=== PATIENT | male | born 1970 | race Caucasian/White ===

== ENCOUNTER 2021-08-21 17:18 | Emergency (ER) | payer OTHER, SELFPAY ==
--- NOTE | ~2021-08-21 | XR_ITS ---
EXAMINATION: XR chest 2V DATE: 08/21/2021 19:05 INDICATION: Cough and shortness of breath TECHNIQUE: PA and lateral views of the chest were obtained. COMPARISON: Chest radiograph dated 11/11/2012 FINDINGS: Mildly decreased lung volumes. Opacities at the bilateral lower lung zones which could represent atel ectasis or pneumonia. No pleural effusion or pneumothorax. Heart size is normal with small bilateral paracardial fat pads. Old healed right clavicle fracture and likely scapula. IMPRESSION: 1. Opacities in the bilateral lower lung zones which could represent atelectasis or pneumonia. Reviewed, dictated and finalized at location A. IMPRESSION: 1. Opacities in the bilateral lower lung zones which could represent atelectasi s or pneumonia.
--- NOTE | 2021-08-21 17:21 | ECG_ITS ---
Measurements Intervals [place] Rate: 89 P: 58 SC: 161 QRS: 28 QRSD: 118 T: 35 QT: 338 QTc: 412 Interpretive Statements SINUS RHYTHM INTRAVENTRICULAR CONDUCTION DELAY DELAYED PRECORDIAL R/S TRANSITION BASELINE ARTIFACT- I, II, III, AVR, AVL, AVF BORDERLINE ECG Electronically Signed On 08-22-2021 14:28:10 CDT by Mulugeta Lynn D.O.
[2021-08-21 17:29] VITALS: BP 156/96; PULSE 90; RESP 21; O2SAT 98
--- NOTE | 2021-08-21 18:14 | ED.SOB ---
HPI - SOB/Dyspnea General Chief Complaint: Shortness of Breath/Dyspnea <Nahid Corral MD - Last Filed: 08/21/21 18:31> Stated Complaint: SOB <Nahid Corral MD - Last Filed: 08/21/21 18:31> Time Seen by Provider: 08/21/21 17:23 <Nahid Corral MD - Last Filed: 08/21/21 18:31> Source: patient and family <Nahid Corral MD - Last Filed: 08/21/21 18:31> Mode of arrival: ambulatory <Nahid Corral MD - Last Filed: 08/21/21 18:31> Limitations: no limitations <Nahid Corral MD - Last Filed: 08/21/21 18:31> History of Present Illness HPI Narrative: 51-year-old male Here because shortness of breath and leg swelling He has had extensive previous work-up for these things, a weeklong hospitalization, and a recent ED visit all at [facility] in [place] and he has seen a japanese professor there According to his it is felt that essentially all of this stems from COPD and cor pulmonale and sleep apnea Sounds like sleep apnea has been known to be severe for quite some time and he has nocturnal CPAP however he usually does not tolerate it and removes the mask because he feels like it is suffocating him, and someone told him that he needed some kind of a surgical procedure in order to better tolerate the CPAP and he is supposed to be seeing an ENT about that Currently he sleeps badly at night and is always drowsy and sometimes falls asleep unexpectedly during the day He has a nebulizer at home as well as a number of pulmonary meds He has used compression stockings but does not use them every day He was taking diuretics however at the time of his fairly recent ED visit to [facility] they did not renew them Unclear exactly why although it would make sense that either his creatinine was rising or they're just generally not super effective for edema due to cor pulmonale He was prescribed a Z-Hans which has not helped too much He is also on Xarelto Effectively he is here today because he has little more leg edema than usual and a little worse exertional dyspnea than usual, they wonder if he needs a different/stronger antibiotic, they wonder about diuretics, and his is wondering if an issue with his heart may have been unappreciated He also had some left-sided abdominal pain a couple days ago but that is now resolved and there are no other GI or symptoms <Nahid Corral MD - Last Filed: 08/21/21 18:31> Related Data Home Medications: Home Medications Medication Instructions Recorded Confirmed albuterol sulfate 08/21/21 albuterol sulfate INHALATION 08/21/21 atorvastatin 40 mg PO DAILY 08/21/21 budesonide mg 08/21/21 esomeprazole magnesium [Nexium] 40 mg PO DAILY 08/21/21 08/21/21 [id number] INHALATION 08/21/21 [Trelegy Ellipta] hydroxyzine HCl 25 mg PO DAILY 08/21/21 levetiracetam 500 mg PO DAILY 08/21/21 metoprolol tartrate 50 mg PO DAILY 08/21/21 montelukast 10 mg PO DAILY 08/21/21 nicotine DAILY 08/21/21 prednisone 10 mg PO DAILY 08/21/21 rivaroxaban [Xarelto] 10 mg PO DAILY 08/21/21 <Nahid Corral MD - Last Filed: 08/21/21 18:31> Allergies/Adverse Reactions: Allergies Allergy/AdvReac Type Severity Reaction Status Date / Time No Known Allergies Allergy Mild Verified 11/11/12 18:17 <Nahid Corral MD - Last Filed: 08/21/21 18:31> Review of Systems Review of Systems: All systems reviewed & are unremarkable except as noted in HPI and below <Nahid Corral MD - Last Filed: 08/21/21 18:31> Constitutional: Constitutional: Reports no additional constitutional complaints, Denies chills, Reports fatigue, Denies fever(s), Denies headache(s) and Reports weakness <Nahid Corral MD - Last Filed: 08/21/21 18:31> Eyes: Eyes: Reports no additional eye complaints and Denies change in vision <Nahid Corral MD - Last Filed: 08/21/21 18:31> ENT: Denies headache(s) and Denies sore throat <Nahid Corral MD - Last Filed: 08/21/21 18:31> Cardio
[2021-08-21 18:20] VITALS: PULSE 86; RESP 18
[2021-08-21] MEDS: ALBUTEROL SULFATE NEB 2.5 MG/0.5 ML INH 5 MG INHALATION (18:20)
[2021-08-21] MEDS: IPRATROPIUM BR 0.02% INH SOLN 0.5 MG/2.5 ML VIAL INHALATION (18:20)
[2021-08-21 18:29] VITALS: PULSE 88; RESP 18
[2021-08-21 18:47] LABS: Alveolar/Arterial O2 Gradient 25.4 mmHg; Fractional Inspired Oxygen 21 %; HCO3 ABG 23.5 mEq/l (22.0-26.0); Oxygen Content ABG 16.9 %vol (16.0-22.0); Oxygen Saturation ABG 95.6 % (95.0-100.0); Oxyhemoglobin 94.2 % THb (90.0-100.0); PCO2 ABG 38.7 mmHg (35.0-45.0); PO2 FiO2 Ratio Arterial Blood 3.71 %; Total Hemoglobin 12.7 g/dL (12.0-18.0); pH ABG 7.402 (7.350-7.450)
[2021-08-21 18:48] LABS: Device ROOM AIR; Modified Allen's Test Pass; Site Drawn LEFT RADIAL
[2021-08-21 18:50] LABS: Basophils Percent Auto 0.3 % (0.2-1.2); Eosinophils Percent Auto 0.3 % (0-4.4); Hematocrit 36.8 % (42.0-52.0); Hemoglobin 11.7 g/dL (14.0-18.0); Immature Granulocyte Absolute 0.18 K/mm3 (0.00-0.031); Immature Granulocyte Percent A 1.5 % (0-0.5); Lymphocytes Absolute Auto 0.86 K/mm3 (0.9-3.2); Lymphocytes Percent Auto 7.4 % (18.3-44.2); Mean Corpuscular HGB Conc 31.8 g/dl (32-36); Mean Corpuscular Volume 91.3 fl (80-100); Mean Platelet Volume 10.6 fl (7.4-10.4); Monocytes Absolute Auto 0.7 K/mm3 (0.1-0.6); Monocytes Percent Auto 6.1 % (2.6-8.5); Neutrophils Absolute Auto 9.9 K/mm3 (1.3-6.7); Neutrophils Percent Auto 84.4 % (45.5-73.1); Platelet Count Result 218 k/mm3 (150-375); Red Blood Count 4.03 M/mm3 (4.6-6.20); Red Cell Distribution Width 14.8 % (11.5-14.5); White Blood Count 11.7 K/mm3 (4.5-10.0)
[2021-08-21] MEDS: BUMETANIDE INJ 1 MG/4 ML VIAL 2 MG IV PUSH (19:00)
[2021-08-21 19:01] LABS: Alanine Aminotransferase 35 U/L (4-50); Albumin Level 4.2 g/dL (3.5-5.1); Alkaline Phosphatase 46 U/L (38-126); Anion Gap 7 mmol/L (8-16); Aspartate Amino Transferase 32 U/L (17-59); Bilirubin,Total 0.4 mg/dL (0.2-1.3); Blood Urea Nitrogen 25 mg/dL (9-20); Calcium 9.5 mg/dL (8.4-10.2); Carbon Dioxide 27 mmol/L (22-30); Chloride 108 mmol/L (98-107); Estimated CRCL calculation 103 ml/min; Estimated Glomerular Filt Rate > 60; Glucose 126 mg/dL (65-110); Potassium 4.2 mmol/L (3.4-5.0); Sodium 142 mmol/L (137-145)
[2021-08-21 19:13] LABS: NT Pro B Type Natriuretic Pept 63 pg/mL (5-100); Troponin I < 0.012 ng/mL (0.000-0.034)
[2021-08-21 19:16] LABS: Add Urine Microscopic? YES; Appearance Urine Clear (Clear); Bilirubin Urine Negative (Negative); Blood Urine Negative (Negative); Color Urine Yellow (Yellow); Glucose Urine UA Negative (Negative); Ketones Urine Negative (Negative); Leukocyte Esterase Ur Negative LEU/UL (Negative); Mucus Urine Rare /lpf; Nitrate Urine Negative (Negative); Protein Urine Negative (Negative); WBC Urine 0-3 /hpf
[2021-08-21 19:18] LABS: Specific Grav Ur 1.032 (1.001-1.035)
[2021-08-21 21:18] VITALS: BP 137/89; PULSE 82; RESP 17; O2SAT 97
== END 2021-08-21 21:19 | disposition home or self-care (01) ==
PROVIDERS: Emergency Provider Emergency Medicine
DX: J44.9 Chronic obstructive pulmonary disease, unspecified (principal); G47.33 Obstructive sleep apnea (adult) (pediatric); Z79.01 Long term (current) use of anticoagulants; I45.9 Conduction disorder, unspecified
CPT/HCPCS: 36415; 36600; 71046; 80053; 81001; 82805; 83880; 84484; 85025; 93005; 94640; 96374; 96375; 99284; J1100

== ENCOUNTER 2022-01-06 07:41 | Outpatient (CLI) | payer OTHER, SELFPAY ==
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
[2022-01-16 12:36] VITALS: BMI 41.8
== END 2022-01-07 06:53 | disposition home or self-care (01) ==
LOC: ANHCSM 07:41
PROVIDERS: PCP Family Medicine; Visit Provider Internal Medicine Critical Care Medicine
DX: G47.33 Obstructive sleep apnea (adult) (pediatric) (principal)
CPT/HCPCS: 95811

== ENCOUNTER 2022-02-06 14:32 | Outpatient (CLI) | payer OTHER, SELFPAY ==
--- NOTE | ~2022-02-06 | XR_ITS ---
XR chest 2V DATE: 02/06/2022 14:50 INDICATION: Shortness of breath. History of COPD, asthma. TECHNIQUE: PA and lateral views COMPARISON: 08/21/2021 2 view chest FINDINGS: Normal heart size. No hilar or mediastinal enlargement. Stable chronic mild discoid atelectasis or scarring at the right lung base. No pulmonary infiltrate or consolidation, pleural effusion or pulmonary vascular congestion or pneumo thorax is detected. There is chronic mild blunting of right costophrenic angle, stable since 08/21/20 21. Old healed fracture deformity of the right clavicle. Diffuse osteopenia. IMPRESSION: Chronic mild discoid atelectasis or scarring at the right lung base and chronic minimal b lunting of the right costophrenic angle. No active cardiopulmonary disease or significant change [facility] e 08/21/2021 Reviewed, dictated and finalized at location A. IMPRESSION: Chronic mild discoid atelectasis or scarring at the right lung base and chronic minimal blunting of the right costophrenic angle. No active cardio pulmonary disease or significant change since 08/21/2021
== END 2022-02-06 14:33 | disposition home or self-care (01) ==
PROVIDERS: PCP Family Medicine; Visit Provider Internal Medicine Critical Care Medicine
DX: R06.02 Shortness of breath (principal); J44.9 Chronic obstructive pulmonary disease, unspecified; J45.909 Unspecified asthma, uncomplicated
CPT/HCPCS: 71046

== ENCOUNTER 2022-02-28 08:48 | Outpatient (CLI) | payer OTHER, SELFPAY ==
--- NOTE | 2022-02-28 08:59 | ECHO_ITS ---
Patient Info Name: Zafar Wright Age: 51 years : 1970 Gender: Male Ht: 71 in Wt: 288 lbs BSA: 2.61 m2 HR: 67 bpm BP: 163 / 94 mmHg Technical Quality: Fair Exam Date: 02/28/2022 9:20 AM Exam Location: [facility] Pulmonary Patient Status: Outpatient Admit Date: 02/28/2022 Staff Ordering Physician: Mulugeta Lynn DO Pencil Maker: Lisa Reddy RDCS Attending Provider: Mulugeta Lynn DO Referring Physician: Shane CRANE; Exam Type: CA echo doppler color flow Study Info Indications R06.00 - Dyspnea, unspecified Complete two-dimensional, color flow and Doppler transthoracic echocardiogram is performed. Summary 1. Complete two-dimensional, color flow and Doppler transthoracic echocardiogram is performed. 2. Left ventricular chamber dimension is normal. 3. Left ventricular systolic function is normal, estimated at 60-65%. 4. The left ventricular diastolic function is grade II diastolic dysfunction. 5. E/e' 11 is mildly elevated. 6. Global longitudinal strain is normal at -18.1%. 7. No pulmonary hypertension, estimated pulmonary arterial systolic pressure is 20 mmHg. Left Ventricle E/e' 11 is mildly elevated. Global longitudinal strain is normal at -18.1%. Left ventricular chamber dimension is normal. Left ventricular systolic function is normal, estimated at 60-65%. The left ventricular diastolic function is grade II diastolic dysfunction. Right Ventricle Right ventricular systolic function is normal and with normal TAPSE 3.1 cm. Right ventricular chamber dimension is normal. Left Atria Left atrial chamber dimension is normal. Right Atria Right atrial chamber dimension is normal. Aortic Valve The aortic valve is trileaflet. There is no aortic valve stenosis. There is no aortic valve regurgitation. Pulmonic Valve There is no pulmonic regurgitation. Mitral Valve There is no mitral valve stenosis. There is no mitral valve regurgitation. Tricuspid Valve There is no tricuspid valve regurgitation. No pulmonary hypertension, estimated pulmonary arterial systolic pressure is 20 mmHg. Pericardium/Pleural There is no pericardial effusion. Inferior Vena Cava Normal inferior vena cava with >50% collapse upon inspiration consistent with normal right atrial pressure, 5 mmHg. Aorta The aortic root size at the sinus of Valsalva is normal. Left Ventricular Outflow Tract Name Value Normal LVOT 2D LVOT Diameter 2.1 cm LVOT Doppler LVOT Peak Gradient 8 mmHg LVOT Mean Gradient 4 mmHg LVOT VTI 26 cm LVOT VTI/AV VTI Ratio 0.9 LVOT Stroke Volume 90 ml LVOT CO 6.3 l/min LVOT CI 2.4 l/min/m2 Pulmonic Valve Name Value Normal RVOT Doppler
== END 2022-02-28 08:49 | disposition home or self-care (01) ==
LOC: ANHCARD 08:49
PROVIDERS: PCP Family Medicine; Visit Provider Internal Medicine Cardiovascular Disease
DX: R06.00 Dyspnea, unspecified (principal)
CPT/HCPCS: 93306

== ENCOUNTER 2022-07-15 19:10 | Observation (INO) | payer OTHER, SELFPAY ==
[2022-07-15] VITALS (8 sets, daily range): BP systolic 108–128; BP diastolic 78–85; PULSE 63–82; RESP 14–27; TEMP 36.6; O2SAT 93–98
--- NOTE | ~2022-07-15 | XR_ITS ---
EXAMINATION: XR chest 2V Exam Date/Time: 07/15/2022 19:20 CDT HISTORY: CP, SOB Comparison: 01/29/2022. RESULT: Lines, tubes, and devices: None. Lungs and pleura: Subsegmental opacities in bilateral lower lungs. Chronic right lateral pleural sca rring. Cardiomediastinal silhouette: Stable. Other: No acute osseous or upper abdominal finding. IMPRESSION: Subsegmental atelectasis/consolidation in the lower lungs. Reviewed, dictated and finalized at location K.
--- NOTE | ~2022-07-15 | CT_ITS ---
EXAMINATION: CTA chest PE protocol DATE: 07/15/2022 21:03 INDICATION: midsternal chest pain only on inspiration x2 days, SOB TECHNIQUE: Computed tomography angiography (CTA) of the chest was performed with 100 mL Omnipaque-350 intravenous contrast timed to evaluate the pulmonary arteries. Coronal maximum intensity projection 3D-reconstructions were created by the technologist. The dose-length product (DLP) was 715.61 mGy-cm. Automated exposure control and iterative reconstruction technique were employed. COMPARISON: None. FINDINGS: Lung parenchyma and airways: Apical pleural blebs. Dependent atelectasis/consolidation in the right l bianca base, right middle lobe, and the anteromedial left lower lobe. Scattered areas of centrilobular n odular and tree-in-bud opacities in the lower lungs. Scattered airway debris, most prominent in the r ight lower lobe bronchi. Pleura: Unremarkable. Thoracic inlet, axillae and chest wall: Unremarkable. Thoracic aorta: Arch calcifications. Mediastinum: Numerous subcentimeter mediastinal lymph nodes. Bilateral hilar lymphadenopathy. Heart and pericardium: Normal. Coronary artery calcifications: Moderate. Upper abdomen: No significant finding. Bones: No acute osseous finding. Pulmonary arteries: Study quality: Adequate. No pulmonary emboli detected. IMPRESSION: No CT evidence of acute pulmonary embolus. Pulmonary findings likely represent infection, including a typical agents and/or aspiration pneumonia Reviewed, dictated and finalized at location K. IMPRESSION: No CT evidence of acute pulmonary embolus. Pulmonary findings likely represent infection, including atypical agents and/or aspiration pneumonia
--- NOTE | 2022-07-15 19:18 | ECG_ITS ---
Measurements Intervals [place] Rate: 70 P: 12 MS: 159 QRS: 45 QRSD: 100 T: 47 QT: 353 QTc: 382 Interpretive Statements SINUS RHYTHM BASELINE ARTIFACT- III NORMAL ECG COMPARED TO ECG 08/21/2021 17:37:47 NO SIGNIFICANT CHANGES Electronically Signed On 07-15-2022 21:14:19 CDT by Mulugeta Lynn D.O.
[2022-07-15 19:32] LABS: Hematocrit 41.7 % (42.0-52.0); Hemoglobin 13.7 g/dL (14.0-18.0); Mean Corpuscular HGB Conc 32.9 g/dl (32-36); Mean Corpuscular Hemoglobin 29.2 pg (26-34); Mean Corpuscular Volume 88.9 fl (80-100); Mean Platelet Volume 11.1 fl (7.4-10.4); Platelet Count Result 341 k/mm3 (150-375); Red Blood Count 4.69 M/mm3 (4.6-6.20); Red Cell Distribution Width 16.9 % (11.5-14.5)
[2022-07-15 19:44] LABS: INR 1.9; Prothrombin Time 21.4 Seconds (11.1-14.7)
[2022-07-15 19:45] LABS: Partial Thromboplastin Time 40.8 SECONDS (22.3-36.8)
[2022-07-15 19:46] LABS: Alanine Aminotransferase 18 U/L (6-50); Alkaline Phosphatase 85 U/L (38-126); Anion Gap 10 mmol/L (8-16); Aspartate Amino Transferase 29 U/L (17-59); Bilirubin,Total 0.5 mg/dL (0.2-1.3); Blood Urea Nitrogen 23 mg/dL (9-20); Calcium 9.5 mg/dL (8.4-10.2); Carbon Dioxide 22 mmol/L (22-30); Chloride 108 mmol/L (98-107); Estimated CRCL calculation 80 ml/min; Estimated Glomerular Filt Rate > 60; Glucose 112 mg/dL (65-110); Lipase 48 U/L (23-300); Sodium 140 mmol/L (137-145)
[2022-07-15 19:57] LABS: Troponin I < 0.012 ng/mL (0.000-0.034)
[2022-07-15 19:58] LABS: White Blood Count 50.8 K/mm3 (4.5-10.0)
[2022-07-15 20:07] LABS: Anisocytosis 1+ (NORMAL); Band Neutrophils Percent 6 % (0-6); Lymphocytes Absolute Manual 5.08 K/mm3 (1.1-4.5); Monocytes Absolute Manual 1.01 K/mm3 (0.1-0.90); Monocytes Percent Manual 2 % (3-9); Neutrophils Percent Manual 82 % (46-73); Platelet Estimate Adequate (Adequate); Total Cells Counted 100
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
[2022-07-15] MEDS: IPRATROPIUM BR 0.02% INH SOLN 0.5 MG/2.5 ML VIAL INHALATION (20:38)
[2022-07-15] MEDS: ALBUTEROL SULFATE NEB 2.5 MG/3 ML INH 5 MG INHALATION (20:38)
[2022-07-15 23:19] LABS: Troponin I < 0.012 ng/mL (0.000-0.034)
[2022-07-15 23:24] LABS: SARS-CoV-2 RNA PCR Negative
[2022-07-16] VITALS (18 sets, daily range): BP systolic 116–130; BP diastolic 70–89; PULSE 68–95; RESP 16–20; TEMP 36.3–36.6; O2SAT 94–99; BMI 33.8
--- NOTE | 2022-07-16 00:26 | ADMGEN ---
This patient, Zafar Wright, was admitted to [facility] Surg Room 323-01. Patient/family oriented to hospital policies and general routines including ID bracelet, bed and alarms, visiting hours, pain management, procedures, bathroom and other care routines, personal items, smoking policy, room service/diet, and visiting hours. Information on how to activate the Rapid Response Team has been discussed. Patient/Family are encouraged to report perceived risks to care and to ask questions if they do not understand what they are told or what they should do.
[2022-07-16 02:18] LABS: Troponin I < 0.012 ng/mL (0.000-0.034)
--- NOTE | 2022-07-16 02:45 | PM.IMHP ---
H&P: HPI History of Present Illness Date/Time: 07/16/22 02:45 Chief Complaint: Pain with breathing, cough Narrative: 52-year-old male with past medical history of interstitial lung disease, COPD, continued tobacco use, traumatic brain injury, obstructive sleep apnea and essential hypertension who presented to the ER with pleuritic chest pain and cough for 2 days. The patient reports that he was out of town working. 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 He reports that after finishing work on when they were driving back to the operational site the patient suddenly developed severe vomiting and diaphoresis. He reported that he generally felt unwell and was unable to sleep that night due to nausea and vomiting. The next day he began having increasing cough and shortness of breath. His checked his temperature at home he does not think that he had a fever. The patient does have some difficulty recalling facts due to short-term memory loss from history of traumatic brain injury. He reports that he has had increased cough since a few hours after in having the episode of vomiting. His cough is always productive of yellow sputum any thinks that he may be producing more sputum than usual. His sputum has not changed in color. He reports that he always has to take Mucinex 3 or 4 times a day [id number]. When questioned about his inhalers at home the patient states that he gets all of his inhalers filled whether not he is using them are not since he gets them filled for free. He does not know which inhaler she is actually supposed to be using. He states that he prefers to use nebulizer treatments. The patient does have a history of difficulty with compliance with medication regimen. He reports that his pleuritic chest pain started on Sunday and is worse with coughing and deep breathing. He reports that it is a burning sensation with breathing. The pain is moderate to severe in intensity. He is still having some nausea but has not had any further vomiting in the last couple of days. He has had decreased oral intake. He has noticed that his urine has been darker over the last couple days but denies difficulty starting or stopping his stream. He reports that he has chronic constipation and only has a bowel movement about twice a week. He states that he has tried ?just about everything? for his constipation without relief symptoms. He denies any active abdominal pain currently. He states that his weight was 315 lb last year but when he was weaned off of steroids his weight began to drop. He states he has not consciously trying to lose weight. His weight currently is around 220 lb. He has lost 16 kg since April and 29 kg since November. He denies any difficulty swallowing food or choking or coughing after eating food. He does have a distant history of DVTs following complication of traumatic brain injury, coma, tracheostomy and prolonged hospital stay. He has a IVC filter in place and takes Xarelto. He reported that when his symptoms 1st started on he did take an extra dose of Xarelto and aspirin because he was concerned that his symptoms could be due to a blood clot. He has not had any lower extremity swelling or edema. He is compliant with his home CPAP with settings of 9 cm water. He follows with Dr. Sparks from pulmonology. He reports that he quit smoking approximately 6 months ago. He has significantly decreased his alcohol use over the last 6 months to a year. He is only drinking 1 or 2 beverages a couple times a week. Review of Systems Review of Systems: 12 systems were reviewed with pertinent positives and negatives per HPI. Except as documented in the HPI, all other systems were reviewed and are negative. [facility] Past Medical History Medical History Alcohol abuse Benign essential HTN Chronic deep vein thrombosis of left popliteal vein Continuous tobacco abuse COPD (chronic o
[2022-07-16] MEDS: ALBUTEROL SULFATE NEB 2.5 MG/3 ML INH INHALATION (03:57)
[2022-07-16] MEDS: SODIUM CHLORIDE 0.9% IV 1,000 ML 999 ML IV CONT (04:22)
[2022-07-16] MEDS: AMPICILLIN SULB 3 GM/NS 100 ML 3 GM/100 ML VIAL IVPB ×4 (04:36→23:53)
[2022-07-16] MEDS: IPRATROPIUM BR 0.02% INH SOLN 0.5 MG/2.5 ML VIAL INHALATION ×4 (05:03→16:18)
[2022-07-16] MEDS: ALBUTEROL SULFATE NEB 2.5 MG/3 ML INH 5 MG INHALATION ×4 (05:03→16:18)
[2022-07-16 06:22] LABS: Hematocrit 37.6 % (42.0-52.0); Hemoglobin 12.5 g/dL (14.0-18.0); Mean Corpuscular HGB Conc 33.2 g/dl (32-36); Mean Corpuscular Hemoglobin 29.2 pg (26-34); Mean Corpuscular Volume 87.9 fl (80-100); Mean Platelet Volume 11.7 fl (7.4-10.4); Platelet Count Result 316 k/mm3 (150-375); Red Blood Count 4.28 M/mm3 (4.6-6.20); Red Cell Distribution Width 16.8 % (11.5-14.5); White Blood Count 34.9 K/mm3 (4.5-10.0)
[2022-07-16 06:35] LABS: Anion Gap 8 mmol/L (8-16); Blood Urea Nitrogen 18 mg/dL (9-20); Calcium 8.9 mg/dL (8.4-10.2); Carbon Dioxide 24 mmol/L (22-30); Chloride 107 mmol/L (98-107); Estimated CRCL calculation 88 ml/min; Estimated Glomerular Filt Rate > 60; Glucose 96 mg/dL (65-110); Potassium 3.3 mmol/L (3.4-5.0); Sodium 139 mmol/L (137-145)
[2022-07-16 07:30] LABS: Band Neutrophils Percent 4 % (0-6); Basophils Absolute Manual 1.04 K/mm3 (0.0-0.1); Basophils Percent Manual 3 % (0-1); Lymphocytes Absolute Manual 1.74 K/mm3 (1.1-4.5); Metamyelocytes Percent 4 %; Monocytes Absolute Manual 2.09 K/mm3 (0.1-0.90); Monocytes Percent Manual 6 % (3-9); Neutrophils Absolute Manual 28.61 K/mm3 (1.3-6.7); Neutrophils Percent Manual 78 % (46-73); Total Cells Counted 100
[2022-07-16 07:31] LABS: Platelet Estimate Adequate (Adequate); Smudge Cells PRESENT
[2022-07-16] MEDS: BUDESONIDE RESPULE NEB 0.5 MG/2 ML AMP INHALATION ×2 (08:11→23:35)
[2022-07-16] MEDS: METOPROLOL TARTRATE 50 MG TAB PO ×2 (08:36→20:30)
[2022-07-16] MEDS: levETIRAcetam 250 MG TABLET PO ×2 (08:36→20:30)
[2022-07-16] MEDS: RIVAROXABAN 10 MG TABLET PO (08:36)
[2022-07-16] MEDS: MONTELUKAST SODIUM 10 MG TABLET PO (08:36)
[2022-07-16] MEDS: guaiFENesin 600 MG/DEXTROMETHORPHAN 30 MG SR TAB 12 HR 1 TAB PO ×2 (08:36→20:29)
[2022-07-16] MEDS: ATORVASTATIN 40 MG TABLET BY MOUTH (08:36)
[2022-07-16] MEDS: PANTOPRAZOLE 40 MG TABLET PO (08:36)
[2022-07-16] MEDS: ACETAMINOPHEN 325 MG TABLET 650 MG PO (21:27)
[2022-07-17] VITALS (12 sets, daily range): BP systolic 130; BP diastolic 69–79; PULSE 71–88; RESP 16–20; TEMP 36.3–36.5; O2SAT 94–96
[2022-07-17] MEDS: IPRATROPIUM BR 0.02% INH SOLN 0.5 MG/2.5 ML VIAL INHALATION ×5 (04:43→15:17)
[2022-07-17] MEDS: ALBUTEROL SULFATE NEB 2.5 MG/3 ML INH 5 MG INHALATION ×5 (04:43→15:17)
[2022-07-17] MEDS: AMPICILLIN SULB 3 GM/NS 100 ML 3 GM/100 ML VIAL IVPB (05:50)
[2022-07-17 06:03] LABS: Basophils Absolute Auto 1.1 K/mm3 (0.0-0.1); Basophils Percent Auto 4.7 % (0.2-1.2); Eosinophils Absolute Auto 0.3 K/mm3 (0-0.3); Eosinophils Percent Auto 1.3 % (0-4.4); Hematocrit 37.7 % (42.0-52.0); Hemoglobin 12.3 g/dL (14.0-18.0); Immature Granulocyte Absolute 4.32 K/mm3 (0.00-0.031); Immature Granulocyte Percent A 18.2 % (0-0.5); Lymphocytes Absolute Auto 2.07 K/mm3 (0.9-3.2); Lymphocytes Percent Auto 8.7 % (18.3-44.2); Mean Corpuscular HGB Conc 32.6 g/dl (32-36); Mean Corpuscular Hemoglobin 28.9 pg (26-34); Mean Corpuscular Volume 88.7 fl (80-100); Mean Platelet Volume 10.9 fl (7.4-10.4); Monocytes Absolute Auto 1.2 K/mm3 (0.1-0.6); Monocytes Percent Auto 4.9 % (2.6-8.5); Neutrophils Absolute Auto 14.8 K/mm3 (1.3-6.7); Neutrophils Percent Auto 62.2 % (45.5-73.1); Platelet Count Result 298 k/mm3 (150-375); Red Blood Count 4.25 M/mm3 (4.6-6.20); Red Cell Distribution Width 16.9 % (11.5-14.5); White Blood Count 23.8 K/mm3 (4.5-10.0)
[2022-07-17 06:26] LABS: Anion Gap 12 mmol/L (8-16); Blood Urea Nitrogen 11 mg/dL (9-20); Carbon Dioxide 28 mmol/L (22-30); Chloride 105 mmol/L (98-107); Estimated CRCL calculation 96 ml/min; Estimated Glomerular Filt Rate > 60; Glucose 102 mg/dL (65-110); Potassium 3.7 mmol/L (3.4-5.0); Sodium 145 mmol/L (137-145)
[2022-07-17] MEDS: guaiFENesin 600 MG/DEXTROMETHORPHAN 30 MG SR TAB 12 HR 1 TAB PO (08:37)
[2022-07-17] MEDS: MONTELUKAST SODIUM 10 MG TABLET PO (08:37)
[2022-07-17] MEDS: levETIRAcetam 250 MG TABLET PO (08:37)
[2022-07-17] MEDS: ATORVASTATIN 40 MG TABLET BY MOUTH (08:37)
[2022-07-17] MEDS: PANTOPRAZOLE 40 MG TABLET PO (08:37)
[2022-07-17] MEDS: METOPROLOL TARTRATE 50 MG TAB PO (08:37)
[2022-07-17] MEDS: RIVAROXABAN 10 MG TABLET PO (08:37)
[2022-07-17] MEDS: BUDESONIDE RESPULE NEB 0.5 MG/2 ML AMP INHALATION (08:43)
--- NOTE | 2022-07-17 10:29 | PM.DS ---
DS: Admitting Diagnosis Discharge Date July 17, 2022 Admitting Diagnosis Chest pain DS: Discharge Diagnosis Discharge Diagnosis (1) Pneumonia: Qualifiers: Laterality: bilateral Lung location: unspecified part of lung Pneumonia type: due to unspecified organism Qualified Code(s): J18.9 - Pneumonia, unspecified organism Code(s): J18.9 - Pneumonia, unspecified organism Status: Acute Assessment and Plan: Pneumonia concerning for aspiration given patient's history of vomiting and subsequent acute onset of pleuritic chest pain the following day. Will change antibiotic therapy from Rocephin and azithromycin to Unasyn but will keep azithromycin on board for atypical coverage. Blood cultures are pending. Will send urine Legionella and pneumococcal antigens. Will check mycoplasma titers and mycoplasma PCR. The patient is not hypoxic and is in no respiratory distress. (2) Neutrophilic leukocytosis: Code(s): D72.9 - Disorder of white blood cells, unspecified Status: Acute Assessment and Plan: Patient has severe leukocytosis with neutrophil predominance likely due to his pneumonia. Patient has had significant weight loss recently which could be attributed to his stopping steroid therapy last year but I am also concerned that there may be some underlying malignant process. Will request pathologist to review peripheral smear. No evidence of malignancy on CT of the chest. (3) COPD (chronic obstructive pulmonary disease): Code(s): J44.9 - Chronic obstructive pulmonary disease, unspecified Status: Acute Assessment and Plan: Patient may have a component of COPD the patient also complicating his pneumonia but given his severe leukocytosis I do not feel comfortable adding steroid therapy. The patient is perseverating on me adding steroid therapy. At this time will consult pulmonology for their opinion and further recommendations. Patient has been started on scheduled nebulizers with albuterol and Atrovent every 4 hours. Will also add Mucinex DM q.12 hours. (4) Obstructive sleep apnea: Code(s): G47.33 - Obstructive sleep apnea (adult) (pediatric) Status: Acute Assessment and Plan: Home CPAP settings of 9 have been ordered. (5) Tobacco use: Code(s): Z72.0 - Tobacco use Status: Acute Assessment and Plan: I congratulated the patient on quitting smoking. DS: Summary Hospital Course Hospital Course: 52-year-old male with past medical history of interstitial lung disease, COPD, continued tobacco use, traumatic brain injury, obstructive sleep apnea and essential hypertension who presented to the ER with pleuritic chest pain and cough for 2 days.? The patient reports that he was out of town working.? 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 He reports that after finishing work on when they were driving back to the operational site the patient suddenly developed severe vomiting and diaphoresis.? He reported that he generally felt unwell and was unable to sleep that night due to nausea and vomiting.? The next day he began having increasing cough and shortness of breath.? His checked his temperature at home he does not think that he had a fever.? The patient does have some difficulty recalling facts due to short-term memory loss from history of traumatic brain injury.? He reports that he has had increased cough since a few hours after in having the episode of vomiting.? His cough is always productive of yellow sputum any thinks that he may be producing more sputum than usual.? His sputum has not changed in color.? He reports that he always has to take Mucinex 3 or 4 times a day [id number].? When questioned about his inhalers at home the patient states that he gets all of his inhalers filled whether not he is using them are not since he gets them filled for free.? He does not know
[2022-07-17] MEDS: levoFLOXacin 750 MG TABLET PO (11:07)
[2022-07-17] MEDS: ACETYLCYSTEINE 20% INHAL SOLN 800 MG/4 ML VIAL 200 MG INHALATION (15:17)
[2022-07-17] MEDS: guaiFENesin 600 MG/DEXTROMETHORPHAN 30 MG SR TAB 12 HR 2 TAB PO (16:44)
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
[2022-07-20 03:39] LABS: Pneumococcal Antigen Urine Detected (Not Detected)
[2022-07-20 13:59] LABS: Mycoplasma IgM Antibody Titer 217 U/mL (<770)
[2022-07-21 07:25] LABS: Legionella pneumophila Ag Ur Not Detected (Not Detected)
== END 2022-07-17 18:42 | disposition home or self-care (01) ==
LOC: ANHED 22:56 → ANH3MEDSUR 23:53
PROVIDERS: Emergency Medicine; Admitting Provider Internal Medicine; Emergency Provider Emergency Medicine; PCP Family Medicine; Visit Provider Student in an Organized Health Care Education/Training Program
DX: J18.9 Pneumonia, unspecified organism (principal); D72.829 Elevated white blood cell count, unspecified; J44.0 Chronic obstructive pulmonary disease with (acute) lower respiratory infection; G47.33 Obstructive sleep apnea (adult) (pediatric); Z99.89 Dependence on other enabling machines and devices; R07.1 Chest pain on breathing; Z87.891 Personal history of nicotine dependence; F41.1 Generalized anxiety disorder; K21.9 Gastro-esophageal reflux disease without esophagitis; E29.1 Testicular hypofunction; F32.9 Major depressive disorder, single episode, unspecified; Z57.2 Occupational exposure to dust; I11.0 Hypertensive heart disease with heart failure; I50.30 Unspecified diastolic (congestive) heart failure; D72.821 Monocytosis (symptomatic); D64.9 Anemia, unspecified; E66.9 Obesity, unspecified; Z20.822 Contact with and (suspected) exposure to COVID-19; Z68.33 Body mass index [BMI] 33.0-33.9, adult; Z95.828 Presence of other vascular implants and grafts; Z87.820 Personal history of traumatic brain injury; Z86.718 Personal history of other venous thrombosis and embolism; Z79.51 Long term (current) use of inhaled steroids; Z79.01 Long term (current) use of anticoagulants; Z79.899 Other long term (current) drug therapy; Z82.49 Family history of ischemic heart disease and other diseases of the circulatory system
CPT/HCPCS: 36415; 71046; 71275; 80048; 80053; 83605; 83690; 84484; 85025; 85610; 85730; 86738; 87040; 87070; 87205; 87449; 87581; 87899; 93005; 94640; 96361; 96365; 96366; 96367; 96375; 99285; A9270; C9803; G0378; J0295; J0456; J0696; J7030; Q9967; U0003; U0005

== ENCOUNTER 2022-08-22 08:56 | Outpatient (CLI) | payer OTHER, SELFPAY ==
--- NOTE | ~2022-08-22 | CT_ITS ---
EXAMINATION: CT chest high resolution wo oh DATE: 08/22/2022 09:20 INDICATION: Hemoptysis TECHNIQUE: Computed tomography (CT) of the chest was performed without intravenous contrast. The dose -length product (DLP) was 557.65 mGy-cm. Automated exposure control and iterative reconstruction tech nique were employed. COMPARISON: 07/15/2022 FINDINGS: There is mild emphysema. There is worsening atelectasis of the right middle lobe. No pathol ogically enlarged thoracic lymph nodes are identified. The heart size is normal. No pleural effusion or pneumothorax. Calcified coronary artery atherosclerosis is noted. There are healed fractures of th e right clavicle and right scapula. There is mild thoracic spondylosis. There is a fat-containing ep igastric ventral hernia to the right of midline. IMPRESSION: 1. Worsening atelectasis of the right middle lobe unclear etiology. Reviewed, dictated and finalized at location A.
== END 2022-08-22 08:57 | disposition home or self-care (01) ==
PROVIDERS: PCP Family Medicine; Visit Provider Family Medicine
DX: R04.2 Hemoptysis (principal); R91.8 Other nonspecific abnormal finding of lung field
CPT/HCPCS: 71250

== ENCOUNTER 2022-08-28 14:43 | Inpatient (IN) | payer OTHER, SELFPAY ==
[2022-08-28] VITALS (9 sets, daily range): BP systolic 109–134; BP diastolic 67–79; PULSE 64–96; RESP 17–18; TEMP 36.4–36.6; O2SAT 92–96; BMI 34.4
--- NOTE | ~2022-08-28 | XR_ITS ---
EXAMINATION: XR chest 1V portable INDICATION: Coughing, weakness TECHNIQUE: Portable AP chest at 1626 hours COMPARISON: 07/15/2022 FINDINGS: There are minimal airspace opacities of the lung bases. No pleural effusion or pneumothorax . The cardiomediastinal silhouette is normal. An old healed fracture of the right clavicle is noted. IMPRESSION: 1. Minimal bibasilar airspace opacity, consistent with atelectasis versus pneumonia. Reviewed, dictated and finalized at location A. IMPRESSION: 1. Minimal bibasilar airspace opacity, consistent with atelectasis versus pneum onia.
--- NOTE | ~2022-08-28 | CT_ITS ---
EXAMINATION: CT brain wo con DATE: 08/28/2022 18:50 INDICATION: Leukemia . TECHNIQUE: Computed tomography (CT) of the head was performed without intravenous contrast. The mA wa s adjusted according to patient size. Iterative reconstruction technique was employed. The dose-lengt h product was 681.00 mGy-cm. COMPARISON: None FINDINGS: No acute intracranial hemorrhage or extra-axial fluid collection. 1.2 x 1.8 cm ovoid soft tissue density projecting off the right cerebellum distorting the fourth vent ricle or possibly within the fourth ventricle. No hydrocephalus or herniation. No acute ischemic infarct. Unremarkable dural venous sinus attenuation. No acute osseous abnormality. Left frontal temporoparietal craniotomy. Moderate right mastoid effusion. Bilateral maxillary sinus mucosal thickening and aerated secretions, with an air-fluid level in the right. Atherosclerotic intracranial calcification. Mild atrophy and chronic white matter change. Left fronta l and temporal encephalomalacia. IMPRESSION: Possible 1.8 cm right cerebellar or fourth ventricle mass. Recommend comparison to outside studies if available. Otherwise consider MR of the brain with and without contrast for further evaluation. Reviewed, dictated and finalized at location K. IMPRESSION: Possible 1.8 cm right cerebellar or fourth ventricle mass. Recommend comparison to outside studies if available. Otherwise consider MR of the brain with and w ithout contrast for further evaluation.
--- NOTE | ~2022-08-28 | US_ITS ---
EXAMINATION: US renal BI DATE: 08/29/2022 15:25 INDICATION: Leukemia. TECHNIQUE: Multiple ultrasound grayscale images of the kidneys were obtained. COMPARISON: CT abdomen and pelvis 08/28/2022 FINDINGS: The right kidney measures 11.6 x 4.9 x 5.3 cm. The left kidney measures 11.6 x 5.5 x 5.5 cm. The kidn eys demonstrate normal parenchymal echogenicity. There is cortical thinning of left kidney. There is no hydronephrosis. The bladder is normal. IMPRESSION: 1. Mild atrophy of left kidney. No hydronephrosis. Reviewed, dictated and finalized at location A.
--- NOTE | ~2022-08-28 | BM_ITS ---
EXAMINATION: CCL bone marrow asp w bx diag ORDER COMPLETED DATE: 08/31/2022 09:07 INDICATION: Leukocytosis concerning for leukemia. TECHNIQUE: A time-out was performed to verify the patient's name, date of , and procedure to b e performed. The procedure including the risks and benefits was discussed with the patient. Risks dis cussed included bleeding, infection, nerve injury and allergic reaction. The patient understood the r isks and agreed to proceed. The skin overlying the right posterior iliac spine was prepped and draped in usual sterile fashion. Anesthetic was administered with 1% lidocaine subcutaneously. Moderate co nscious sedation was achieved with 150 mcg fentanyl IV. An 11 gauge needle was inserted into the iliu m with fluoroscopic guidance. Bone marrow was aspirated. An 8 gauge needle was then inserted into the ilium with fluoroscopic guidance. A core bone marrow biopsy was obtained. The needle was removed and the entry site was cleaned and dressed. There were no immediate complications. A total of 69 fluoro scopic images were recorded. Fluoroscopy exposure time was 0.1 minutes. FINDINGS: Real-time fluoroscopy demonstrates the biopsy needle tip overlying the left posterior iliac spine. IMPRESSION: 1. Successful fluoroscopic guided bone marrow aspiration. 2. Successful fluoroscopic guided bone marrow biopsy. Reviewed, dictated and finalized at location A.
--- NOTE | ~2022-08-28 | US_ITS ---
EXAMINATION: US abdomen limited DATE: 08/29/2022 15:25 INDICATION: Leukemia. TECHNIQUE: Multiple grayscale and Doppler ultrasound images of the abdomen were obtained. COMPARISON: CT abdomen and pelvis 08/28/2022 FINDINGS: The visualized portions of the head and body of the pancreas are normal. The liver is stephanie l without focal lesion. There is normal flow in main portal vein. The gallbladder is normal in size. No gallstones or gallbladder wall thickening. There is no sonographic Gaines sign. The common duct is normal and measures 4 mm. There is mild splenomegaly. IMPRESSION: 1. Mild splenomegaly. Reviewed, dictated and finalized at location A. IMPRESSION: 1. Mild splenomegaly.
--- NOTE | ~2022-08-28 | MR_ITS ---
EXAMINATION: MR brain/brain stem wo/w con DATE: 08/31/2022 10:03 INDICATION: Abnormal head CT TECHNIQUE: Magnetic resonance imaging (MRI) of the brain and brainstem was performed without and with 20 mL Multihance intravenous contrast. Sequences included sagittal and axial T1-weighted SE, axial d iffusion-weighted FS SE, axial T2*-weighted GRE, axial 3D SWAN, axial T2-weighted FLAIR, and axial T2 -weighted FSE. Postcontrast axial and coronal T1-weighted SE was obtained. Apparent diffusion coeffic ient (ADC) maps were created. COMPARISON: Head CT dated 08/28/2020 FINDINGS: Moderate-sized region of encephalomalacia along the lateral aspect of the left temporal lobe. Several smaller regions of encephalomalacia along the anteroinferior and lateral left frontal lobe and left parietal lobe which underlies a large left frontotemporoparietal craniotomy which could represent seq uela of old trauma, infarct or other surgery. There is mild increased T2 signal consistent with glios is along a likely tract for a prior right frontal ventricular drain catheter with small right frontal whitney hole but no catheter evident on prior CT. There are no areas of restricted diffusion to suggest acute infarction. No intracranial hemorrhage. 2 .3 x 1.8 cm T2 hyperintense lesion at the left side of the superior cerebellar vermis with low-attenu ation on prior CT and no enhancement on postcontrast imaging most likely representing additional smal l region of encephalomalacia related to old infarct. This results in asymmetric increased prominence of the affected contralateral right side of the superior cerebellar vermis accounts for the artifactu al appearance of a mass at this location on prior CT. No abnormal masses or abnormally enhancing lesi ons identified. Additional mild scattered foci of nonspecific increased T2-weighted signal intensity in the cerebral white matter, predominantly involving the deep and periventricular white matter. Ther e are no intraparenchymal signal abnormalities seen on the other pulse sequences. The ventricles are symmetric and normal in size. There are no abnormal extra-axial fluid collections. Flow voids are see n in the cerebral arteries on the T2-weighted sequences consistent with their expected patency. Promi nent mucosal thickening and some mucous in the bilateral maxillary sinuses. Mild mucosal thickening t he bilateral ethmoid sinuses. Right mastoid effusion. The orbits are normal. IMPRESSION: 1. No abnormal masses or abnormally enhancing lesions identified. The artifactual appearance of a mas s at the right cerebellar hemisphere based on prior CT images results from the asymmetric encephaloma lacia involving the contralateral medial aspect of the superior left cerebellar vermis changes likely related to old infarct. 2. Multiple additional larger regions of encephalomalacia involving portions of the left frontal, tem poral and parietal lobes underlying a large craniotomy defect with differential including additional chronic infarcts or sequela of old trauma or surgery. 3. Prominent mucosal thickening the paranasal sinuses. 4. Right mastoid effusion. Reviewed, dictated and finalized at location A. IMPRESSION: 1. No abnormal masses or abnormally enhancing lesions identified. The artifactu al appearance of a mass at the right cerebellar hemisphere based on prior CT im ages results from the asymmetric encephalomalacia involving the contralateral m edial aspect of the superior left cerebellar vermis changes likely related to o ld infarct. 2. Multiple additional larger regions of encephalomalacia involving portions of the left frontal, temporal and parietal lobes underlying a large craniotomy de fect with differential including additional chronic infarcts or sequela of old tr
--- NOTE | ~2022-08-28 | CT_ITS ---
EXAMINATION: CT abdomen pelvis w con DATE: 08/28/2022 18:52 INDICATION: Leukemia, umbilical hernia TECHNIQUE: Computed tomography (CT) of the abdomen and pelvis was performed with 100 mL Omnipaque-350 intravenous contrast. Automated exposure control and iterative reconstruction technique were employe d. The dose-length product was 1296.63 mGy-cm. COMPARISON: CT 08/22/2022, CTPA 07/15/2022. FINDINGS: Lower thorax: Scattered centrilobular nodular and groundglass opacities, most evident in the left low er lung. Bibasilar scar/atelectasis. Chronic right middle lobe scarring. Coronary artery calcificatio ns. Moderate hiatal hernia. Liver: Normal. Biliary/Gallbladder: Gallbladder is collapsed. No bile duct dilation. Pancreas: No mass or duct dilation. Spleen: Normal. Adrenals:No mass. Kidneys: No mass, stone, or hydronephrosis. GI tract: Perigastric and splenic hilar fluid collections, unchanged and of uncertain significance, p ossibly related to prior therapy or procedure. Appearance is atypical for pseudocyst. No small or lar ge bowel dilation. Normal appendix. Diverticulosis without diverticulitis. Mesentery/Peritoneum: No ascites, mass, or free air. Retroperitoneum: No mass. Atherosclerotic abdominal aortic and/or arterial calcifications. Pelvis: Mild bladder wall thickening and inflammatory change. Soft Tissues: Fat-containing umbilical and ventral hernias without obvious complication. Bones: No acute osseous finding. IMPRESSION: Pulmonary opacities may reflect hypersensitivity pneumonitis, respiratory bronchiolitis in smokers, o r infectious airways disease. Possible cystitis. No other acute abdominopelvic process detected. Reviewed, dictated and finalized at location K. IMPRESSION: Pulmonary opacities may reflect hypersensitivity pneumonitis, respiratory bronc hiolitis in smokers, or infectious airways disease. Possible cystitis. No other acute abdominopelvic process detected.
[2022-08-28 15:09] LABS: Hematocrit 40.4 % (42.0-52.0); Hemoglobin 13.4 g/dL (14.0-18.0); Mean Corpuscular HGB Conc 33.2 g/dl (32-36); Mean Corpuscular Hemoglobin 29.9 pg (26-34); Mean Corpuscular Volume 90.2 fl (80-100); Mean Platelet Volume 11.1 fl (7.4-10.4); Platelet Count Result 288 k/mm3 (150-375); Red Blood Count 4.48 M/mm3 (4.6-6.20); Red Cell Distribution Width 16.2 % (11.5-14.5)
[2022-08-28 15:20] LABS: Alanine Aminotransferase 16 U/L (6-50); Albumin Level 4.2 g/dL (3.5-5.1); Alkaline Phosphatase 78 U/L (38-126); Anion Gap 13 mmol/L (8-16); Aspartate Amino Transferase 27 U/L (17-59); Bilirubin,Total 0.5 mg/dL (0.2-1.3); Blood Urea Nitrogen 16 mg/dL (9-20); Calcium 9.6 mg/dL (8.4-10.2); Carbon Dioxide 28 mmol/L (22-30); Chloride 102 mmol/L (98-107); Estimated CRCL calculation 82 ml/min; Estimated Glomerular Filt Rate > 60; Glucose 106 mg/dL (65-110); Potassium 4.2 mmol/L (3.4-5.0); Sodium 143 mmol/L (137-145)
[2022-08-28 15:28] LABS: White Blood Count 100.6 K/mm3 (4.5-10.0)
[2022-08-28 15:49] LABS: Band Neutrophils Percent 24 % (0-6); Blastocytes 1 %; Lymphocytes Absolute Manual 9.05 K/mm3 (1.1-4.5); Metamyelocytes Percent 14 %; Monocytes Absolute Manual 4.02 K/mm3 (0.1-0.90); Monocytes Percent Manual 4 % (3-9); Myelocytes Percent 7 %; Neutrophils Absolute Manual 65.39 K/mm3 (1.3-6.7); Neutrophils Percent Manual 41 % (46-73); Platelet Estimate Adequate (Adequate); Total Cells Counted 100
[2022-08-28 15:53] LABS: Schistocytes None Seen (NORMAL)
[2022-08-28 15:54] LABS: Hypochromasia 1+ (NORMAL); Polychromasia 1+ (NORMAL)
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
[2022-08-28 17:07] LABS: Add Urine Microscopic? NO; Appearance Urine Clear (Clear); Bilirubin Urine Negative (Negative); Blood Urine Negative (Negative); Color Urine Yellow (Yellow); Glucose Urine UA Negative (Negative); Ketones Urine Negative (Negative); Leukocyte Esterase Ur Negative LEU/UL (Negative); Nitrate Urine Negative (Negative); Protein Urine Negative (Negative); Specific Grav Ur 1.025 (1.001-1.035); Urobilinogen Urine Negative mg/dL (<2.0)
[2022-08-28 18:54] LABS: SARS-CoV-2 RNA PCR Negative
--- NOTE | 2022-08-28 19:37 | ADMGEN ---
This patient, Zafar Wright, was admitted to Medical Room [facility] at 1925. Patient/family oriented to hospital policies and general routines including ID bracelet, bed and alarms, visiting hours, pain management, procedures, bathroom and other care routines, personal items, smoking policy, room service/diet, and visiting hours. Information on how to activate the Rapid Response Team has been discussed. Patient/Family are encouraged to report perceived risks to care and to ask questions if they do not understand what they are told or what they should do.
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
[2022-08-29] VITALS (18 sets, daily range): BP systolic 112–142; BP diastolic 71–82; PULSE 71–104; RESP 14–20; TEMP 36.2–36.6; O2SAT 92–98
[2022-08-29] MEDS: IPRATROPIUM BR 0.02% INH SOLN 0.5 MG/2.5 ML VIAL INHALATION ×6 (00:20→19:39)
[2022-08-29] MEDS: ALBUTEROL SULFATE NEB 2.5 MG/3 ML INH 5 MG INHALATION ×6 (00:20→19:38)
[2022-08-29 03:57] LABS: Lactate Dehydrogenase 473 U/L (120-246)
[2022-08-29] MEDS: SODIUM CHLOR 3% 15 ML NEB (RESPIRATORY THERAPY) 6 ML INHALATION (05:24)
[2022-08-29 05:36] LABS: Hematocrit 36.9 % (42.0-52.0); Hemoglobin 12.3 g/dL (14.0-18.0); Mean Corpuscular HGB Conc 33.3 g/dl (32-36); Mean Corpuscular Hemoglobin 29.8 pg (26-34); Mean Corpuscular Volume 89.3 fl (80-100); Mean Platelet Volume 11.2 fl (7.4-10.4); Platelet Count Result 267 k/mm3 (150-375); Red Blood Count 4.13 M/mm3 (4.6-6.20); Red Cell Distribution Width 15.9 % (11.5-14.5)
[2022-08-29 05:51] LABS: Uric Acid 11.4 mg/dL (3.5-8.5)
[2022-08-29 06:01] LABS: White Blood Count 87.5 K/mm3 (4.5-10.0)
[2022-08-29 06:05] LABS: Band Neutrophils Percent 12 % (0-6); Basophils Absolute Manual 1.75 K/mm3 (0.0-0.1); Basophils Percent Manual 2 % (0-1); Blastocytes 1 %; Lymphocytes Absolute Manual 11.37 K/mm3 (1.1-4.5); Metamyelocytes Percent 1 %; Monocytes Absolute Manual 6.12 K/mm3 (0.1-0.90); Monocytes Percent Manual 7 % (3-9); Myelocytes Percent 4 %; Neutrophils Percent Manual 60 % (46-73); Platelet Estimate Adequate (Adequate); Total Cells Counted 100
[2022-08-29 06:06] LABS: Atypical Lymphocytes Present; Schistocytes None Seen (NORMAL)
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
[2022-08-29] MEDS: MONTELUKAST SODIUM 10 MG TABLET PO (09:07)
[2022-08-29] MEDS: ATORVASTATIN 40 MG TABLET BY MOUTH (09:07)
[2022-08-29] MEDS: METOPROLOL TARTRATE 50 MG TAB PO ×2 (09:08→21:22)
[2022-08-29] MEDS: guaiFENesin 12 HR 600 MG TABCR 1200 MG PO ×2 (09:08→21:22)
[2022-08-29] MEDS: levETIRAcetam 250 MG TABLET PO ×2 (09:08→21:22)
[2022-08-29] MEDS: PANTOPRAZOLE 40 MG TABLET PO (09:09)
[2022-08-29] MEDS: NICOTINE (*PBKC) 21 MG PATCH 1 PATCH TRANSDERM (09:09)
--- NOTE | 2022-08-29 10:05 | PC.NURSE ---
Pt informed this AM to refrain from eating his breakfast tray until returning from ultrasound d/t US calling and informing pt needed to be NPO for the procedure, no NPO order was entered in chart. Pt verbalized understanding. RN later went in pt's room to give AM meds and saw he ate 100% of his tray, pt stated I was going to call you and ask if I still needed to wait but I just went ahead and ate RN called US, procedure will be put off until 2:00pm. NPO order will be entered for lunch and diet will be restarted after US is finished.
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
[2022-08-29] MEDS: FLUTICASONE/SALMETEROL 115-21 MCG INHALER 1 PUFF 2 PUFF INHALATION (19:39)
[2022-08-30] VITALS (18 sets, daily range): BP systolic 108–129; BP diastolic 67–81; PULSE 71–91; RESP 16–20; TEMP 36.1–36.6; O2SAT 94–99
[2022-08-30] MEDS: IPRATROPIUM BR 0.02% INH SOLN 0.5 MG/2.5 ML VIAL INHALATION ×5 (00:11→21:13)
[2022-08-30] MEDS: ALBUTEROL SULFATE NEB 2.5 MG/3 ML INH 5 MG INHALATION ×5 (00:11→21:13)
[2022-08-30] MEDS: SODIUM CHLOR 3% 15 ML NEB (RESPIRATORY THERAPY) 6 ML INHALATION ×2 (05:21→16:53)
[2022-08-30 05:29] LABS: Hematocrit 36.3 % (42.0-52.0); Hemoglobin 12.3 g/dL (14.0-18.0); Mean Corpuscular HGB Conc 33.9 g/dl (32-36); Mean Corpuscular Hemoglobin 30.3 pg (26-34); Mean Corpuscular Volume 89.4 fl (80-100); Platelet Count Result 258 k/mm3 (150-375); Red Blood Count 4.06 M/mm3 (4.6-6.20)
[2022-08-30 05:41] LABS: Anion Gap 8 mmol/L (8-16); Blood Urea Nitrogen 14 mg/dL (9-20); Calcium 9.2 mg/dL (8.4-10.2); Carbon Dioxide 28 mmol/L (22-30); Chloride 104 mmol/L (98-107); Estimated CRCL calculation 82 ml/min; Estimated Glomerular Filt Rate > 60; Glucose 119 mg/dL (65-110); Potassium 3.7 mmol/L (3.4-5.0); Sodium 140 mmol/L (137-145)
[2022-08-30 05:55] LABS: Atypical Lymphocytes Present; Band Neutrophils Percent 12 % (0-6); Basophils Absolute Manual 0.92 K/mm3 (0.0-0.1); Basophils Percent Manual 1 % (0-1); Eosinophils Absolute Manual 0.92 K/mm3 (0.02-0.5); Eosinophils Percent Manual 1 % (0-4); Lymphocytes Absolute Manual 25.81 K/mm3 (1.1-4.5); Metamyelocytes Percent 2 %; Monocytes Absolute Manual 0.92 K/mm3 (0.1-0.90); Monocytes Percent Manual 1 % (3-9); Neutrophils Absolute Manual 61.77 K/mm3 (1.3-6.7); Neutrophils Percent Manual 55 % (46-73); Platelet Estimate Adequate (Adequate); Total Cells Counted 100
[2022-08-30 05:56] LABS: Anisocytosis 1+ (NORMAL); Ovalocytes 1+ (NORMAL); Schistocytes None Seen (NORMAL)
[2022-08-30 05:59] LABS: White Blood Count 92.2 K/mm3 (4.5-10.0)
[2022-08-30] MEDS: guaiFENesin 12 HR 600 MG TABCR 1200 MG PO (08:50)
[2022-08-30] MEDS: PANTOPRAZOLE 40 MG TABLET PO (08:51)
[2022-08-30] MEDS: ATORVASTATIN 40 MG TABLET BY MOUTH (08:51)
[2022-08-30] MEDS: MONTELUKAST SODIUM 10 MG TABLET PO (08:51)
[2022-08-30] MEDS: NICOTINE (*PBKC) 21 MG PATCH 1 PATCH TRANSDERM (08:52)
[2022-08-30] MEDS: METOPROLOL TARTRATE 50 MG TAB PO (08:52)
[2022-08-30] MEDS: FLUTICASONE/SALMETEROL 115-21 MCG INHALER 1 PUFF 2 PUFF INHALATION ×2 (08:52→21:14)
[2022-08-30] MEDS: levETIRAcetam 250 MG TABLET PO (08:52)
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
--- NOTE | 2022-08-30 13:56 | PC.NURSE ---
On 08/30/22, the student, [Abhilash Light], provided care and completed [facility] documentation on this patient. I have reviewed the student's documentation and agree with the findings.
--- NOTE | 2022-08-30 17:07 | PM.IMPN ---
Progress Note: A&P Assessment and Plan (1) Leukocytosis, unspecified: Qualifiers: Leukocytosis type: other Qualified Code(s): D72.828 - Other elevated white blood cell count Code(s): D72.829 - Elevated white blood cell count, unspecified Status: Acute Assessment and Plan: Severe leukocytosis with myelocytes and metamyelocytes present. 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 LDH and uric acid elevated. Patient reports 40 lb unintentional weight loss over 8 month period. Oncology was consulted and appreciate recommendations. Plan for bone marrow biopsy tomorrow. Holding systemic steroids and xarelto. Trend WBC. 100.6 on presentation, down to 87.5 yesterday. Back up to 92.2 today Patient afebrile (2) COPD exacerbation: Code(s): J44.1 - Chronic obstructive pulmonary disease with (acute) exacerbation Status: Acute Assessment and Plan: Case was discussed by admitting provider with Dr. Sparks from pulmonology, who recommends placing the patient on empiric antibiotic therapy in case he has an opportunistic pneumonia given the potential for acute leukemia. Pulmonology consulted and appreciate recommendations. Continue scheduled nebulizer treatments q.4 hours with albuterol and Atrovent. Will substitute his beta agonist and inhaled corticosteroid for Symbicort. Continue mucolytic and 3% saline nebulizers twice daily. Continue IV levofloxacin Systemic steroids on hold due to leukocytosis (3) Obstructive sleep apnea: Code(s): G47.33 - Obstructive sleep apnea (adult) (pediatric) Status: Acute Assessment and Plan: Auto titrating CPAP/BiPAP at night and daytime naps. (4) Chronic anticoagulation: Code(s): Z79.01 - USP (current) use of anticoagulants Status: Acute Assessment and Plan: Xarelto is on hold in anticipation of bone marrow biopsy Patient has IVC filter in place. (5) Cerebellar mass: Code(s): G93.89 - Other specified disorders of brain Status: Acute Assessment and Plan: 1.8 cm cerebellar mass noted on CT scan. Brain MRI has been ordered, unable to be completed until verification of IVC filter type. IVC filter was placed years ago in [place] Patient is at baseline cognitive status (6) Left renal atrophy: Code(s): N26.1 - Atrophy of kidney (terminal) Status: Acute Assessment and Plan: Renal ultrasound demonstrated mild left renal atrophy without hydronephrosis. Renal function is stable Will need outpatient follow-up Plan Subjective Date/time seen: 08/30/22 17:07 Interval history: Date of service: 08/30/2022 Zafar Wright is a 52-year-old male with a history of COPD, diastolic CHF, tobacco abuse, alcohol abuse, hypertension, DVT s/p IVC filter, TBI, VALERIE who is seen in follow-up for severe leukocytosis and COPD exacerbation. The patient reports chronic pain all over related to arthritis that is unchanged. He has intermittent shortness of breath and diffuse wheezing. He has nonproductive cough. He states ?I think a cough it all up already.? He states his wheezing has slightly improved. He denies chest pain or palpitations. He does endorse markedly decreased energy. He also indicates unintentional weight loss of about 40 lb since December 2021. Review of Systems Review of Systems: All systems reviewed & are unremarkable except as noted in HPI and below Exam Narrative: General: Well-nourished, well-appearing 52-year-old male, sitting up at the bedside, comfortable, NARD Neuro: awake, alert and oriented x4, speech clear, no focal neuro deficits noted HEENMT: normocephalic, atraumatic, EOMI, sclerae anicteric, moist oral mucosa Respiratory: Faint inspiratory wheezes, frequent cough, nonlabored breathing, able to speak in complete sentences Cardio: regular rate, regular rhythm with S1-S2 Abdomen: nondistended, normoactive b
--- NOTE | 2022-08-30 17:20 | PC.NURSE ---
Patient's obtained IVC filter information for MRI however, MRI is requesting it to be on a printed piece of paper with patients demographic information. It is currently on patient's phone via a [employer] kwadwo. Patient obviously has no access to a printer, is supposed to be providing another screenshot of demographic information from this kwadwo as patient states he is not smart enough to work it . all information to be emailed to MRI before procedure to allow them to scan into patient chart. RN is to call MRI beforehand to get proper email address to send information to.
[2022-08-31] VITALS (15 sets, daily range): BP systolic 108–128; BP diastolic 70–77; PULSE 71–86; RESP 16–20; TEMP 36.1–36.9; O2SAT 94–96
[2022-08-31] MEDS: guaiFENesin 12 HR 600 MG TABCR 1200 MG PO ×3 (00:01→20:46)
[2022-08-31] MEDS: levETIRAcetam 250 MG TABLET PO ×3 (00:02→20:47)
[2022-08-31] MEDS: METOPROLOL TARTRATE 50 MG TAB PO ×3 (00:03→20:46)
[2022-08-31] MEDS: IPRATROPIUM BR 0.02% INH SOLN 0.5 MG/2.5 ML VIAL INHALATION ×3 (00:04→16:08)
[2022-08-31] MEDS: ALBUTEROL SULFATE NEB 2.5 MG/3 ML INH 5 MG INHALATION ×3 (00:04→16:08)
[2022-08-31 06:06] LABS: Hematocrit 38.2 % (42.0-52.0); Hemoglobin 12.5 g/dL (14.0-18.0); Mean Corpuscular HGB Conc 32.7 g/dl (32-36); Mean Corpuscular Hemoglobin 29.7 pg (26-34); Mean Corpuscular Volume 90.7 fl (80-100); Mean Platelet Volume 10.8 fl (7.4-10.4); Platelet Count Result 282 k/mm3 (150-375); Red Blood Count 4.21 M/mm3 (4.6-6.20); Red Cell Distribution Width 16.2 % (11.5-14.5)
[2022-08-31 06:23] LABS: Anion Gap 12 mmol/L (8-16); Blood Urea Nitrogen 14 mg/dL (9-20); Calcium 9.3 mg/dL (8.4-10.2); Carbon Dioxide 28 mmol/L (22-30); Chloride 102 mmol/L (98-107); Estimated CRCL calculation 76 ml/min; Estimated Glomerular Filt Rate 58; Glucose 108 mg/dL (65-110); Sodium 142 mmol/L (137-145)
--- NOTE | 2022-08-31 06:26 | PCRCNOTE ---
Window of time for administration has passed. See next scheduled administration.
[2022-08-31] MEDS: SODIUM CHLOR 3% 15 ML NEB (RESPIRATORY THERAPY) 6 ML INHALATION (06:28)
[2022-08-31 06:35] LABS: White Blood Count 90.7 K/mm3 (4.5-10.0)
--- NOTE | 2022-08-31 07:30 | PC.NURSE ---
pt to seed analysis laboratory assistant for bone marrow biopsy via bed
[2022-08-31 07:58] LABS: Band Neutrophils Percent 25 % (0-6); Basophils Percent Manual 1 % (0-1); Blastocytes 1 %; Eosinophils Percent Manual 1 % (0-4); Lymphocytes Absolute Manual 9.07 K/mm3 (1.1-4.5); Metamyelocytes Percent 11 %; Myelocytes Percent 3 %; Neutrophils Absolute Manual 66.21 K/mm3 (1.3-6.7); Neutrophils Percent Manual 48 % (46-73); Total Cells Counted 100
[2022-08-31 07:59] LABS: Platelet Estimate Adequate (Adequate); Schistocytes None Seen (NORMAL)
[2022-08-31 08:00] LABS: Anisocytosis 1+ (NORMAL)
[2022-08-31 08:01] LABS: Microcytosis 1+ (NORMAL)
--- NOTE | 2022-08-31 08:19 | WPDMODSED ---
Moderate Sedation Note-Pt Data Patient Data Diagnosis: suspected leukemia Present Complaint: leukocytosis Procedure to be performed/Plan: bone marrow biopsy Allergies Allergy/AdvReac Type Severity Reaction Status Date / Time No Known Allergies Allergy Mild Verified 08/04/22 15:41 Home Medications Medication Instructions Recorded Confirmed Type montelukast 10 mg tablet 10 mg PO DAILY #90 tabs 11/25/21 08/28/22 Rx Ventolin HFA 90 mcg/actuation 1 - 2 inh inhalation Q4-6H PRN 12/21/21 08/28/22 Rx aerosol inhaler (albuterol sulfate) shortness of breath 90 days #18 grams atorvastatin 40 mg tablet See Rx Instructions .Route 04/27/22 08/28/22 Rx .COMPLEX #90 tabs nicotine 21 mg/24 hr daily 1 patch transdermal DAILY #28 ea 06/02/22 08/28/22 Rx transdermal patch metoprolol tartrate 50 mg tablet 50 mg PO BID #180 tabs 06/30/22 08/28/22 Rx esomeprazole magnesium 40 mg 40 mg PO 1XD 07/16/22 08/28/22 History capsule,delayed release levetiracetam 500 mg 500 mg PO 1XD 07/16/22 08/28/22 History tablet,extended release 24 hr rivaroxaban 10 mg tablet (Xarelto) See Rx Instructions .Route 08/09/22 08/28/22 Rx .COMPLEX #90 tabs albuterol sulfate 1.25 mg/3 mL 1.25 mg (3 mL) inhalation Q6H PRN 08/14/22 08/28/22 Rx solution for nebulization shortness of breath or wheezing 1 month #120 vials budesonide 160 mcg-glycopyr 9 2 inh inhalation BID #10.7 grams 08/14/22 08/28/22 Rx mcg-formot 4.8 mcg/actuation HFA inhaler (Breztri Aerosphere) Current Medications: Active Medications Acetaminophen (Acetaminophen 325 Mg Tablet) 650 mg PO Q4H PRN PRN Reason: Mild Pain (1-3) or Fever Albuterol (Albuterol Sulfate Neb 2.5 Mg/3 Ml Inh) 5 mg INHALATION Q4HRT [facility] Last Admin: 08/31/22 07:57 Dose: Not Given Atorvastatin Calcium (Atorvastatin 40 Mg Tablet) 40 mg BY MOUTH DAILY [facility] Last Admin: 08/30/22 08:51 Dose: 40 mg Guaifenesin (Guaifenesin 12 Hr 600 Mg Tabcr) 1,200 mg PO Q12HR [facility] Last Admin: 08/31/22 00:01 Dose: 1,200 mg Levofloxacin/Dextrose (Levaquin 750 Mg/D5w 150 Ml) 750 mg in 150 mls @ 100 mls/hr IVPB Q24H [facility] Last Admin: 08/30/22 20:38 Dose: 100 mls/hr Ipratropium Bradley (Ipratropium Br 0.02% Inh Soln 0.5 Mg/2.5 Ml Vial) 0.5 mg INHALATION Q4HRT [facility] Last Admin: 08/31/22 07:57 Dose: Not Given Levetiracetam (Levetiracetam 250 Mg Tablet) 250 mg PO Q12HR [facility] Last Admin: 08/31/22 00:02 Dose: 250 mg Metoprolol Tartrate (Metoprolol Tartrate 50 Mg Tab) 50 mg PO Q12HR [facility] Last Admin: 08/31/22 00:03 Dose: 50 mg Montelukast Sodium (Montelukast Sodium 10 Mg Tablet) 10 mg PO DAILY [facility] Last Admin: 08/30/22 08:51 Dose: 10 mg Neomycin/Polymyxin/Bacitracin (Neomycin/Polymyxin/Bacitracin Ointment 15 Gm Tube) 1 applic TOPICAL PRN PRN PRN Reason: with dressing changes Nicotine (Nicotine (*Pbkc) 21 Mg Patch) 1 patch TRANSDERM DAILY [facility] Last Admin: 08/30/22 08:52 Dose: 1 patch Ondansetron HCl (Ondansetron Inj 4 Mg/2 Ml Vial) 4 mg IV PUSH Q4H PRN PRN Reason: Nausea Pantoprazole Sodium (Pantoprazole 40 Mg Tablet) 40 mg PO DAILY [facility] Last Admin: 08/30/22 08:51 Dose: 40 mg Fluticasone/Salmeterol (Fluticasone/Salmeterol 115-21 Mcg Inhaler 1 Puff) 2 puff INHALATION Q12HRT [facility] Last Admin: 08/30/22 21:14 Dose: 2 puff Sodium Chloride (Sodium Chlor 3% 15 Ml Neb (Respiratory Therapy)) 6 ml INHALATION BID [facility] Last Admin: 08/31/22 06:28 Dose: 6 ml Sedation/Anesthesia: No previous sedation/anesthesia problems (including family history). [facility] Past Medical History Medical History Alcohol abuse Benign essential HTN Chronic deep vein thrombosis of left popliteal vein Continuous tobacco abuse COPD (chronic obstructive pulmonary disease) Diastolic heart failure secondary to hypertension Echocardiogram 02/28/2022: Left ventricular systolic function 60 65%, diastolic dysfunction grade 2, E/E 11 is mildly elevated, global longitudinal strain is normal at -18%, no pulmonar
--- NOTE | 2022-08-31 09:01 | SUR.PHASEII ---
please see laboratory associate prologue for vitals
--- NOTE | 2022-08-31 09:09 | PC.NURSE ---
pt returned from procedure, MRI notified that pt is back in room and is available for scan
--- NOTE | 2022-08-31 09:31 | PC.NURSE ---
pt to MRI via wheelchair
[2022-08-31] MEDS: MONTELUKAST SODIUM 10 MG TABLET PO (10:30)
[2022-08-31] MEDS: PANTOPRAZOLE 40 MG TABLET PO (10:30)
[2022-08-31] MEDS: ATORVASTATIN 40 MG TABLET BY MOUTH (10:30)
[2022-08-31] MEDS: NICOTINE (*PBKC) 21 MG PATCH 1 PATCH TRANSDERM (10:31)
[2022-08-31] MEDS: FLUTICASONE/SALMETEROL 115-21 MCG INHALER 1 PUFF 2 PUFF INHALATION (11:32)
--- NOTE | 2022-08-31 13:37 | PC.NURSE ---
On 08/31/22, the student, [Lesley Bliss], provided care and completed [facility] documentation on this patient. I have reviewed the student's documentation and agree with the findings.
--- NOTE | 2022-08-31 17:02 | PM.IMPN ---
Progress Note: A&P Assessment and Plan (1) Leukocytosis, unspecified: Qualifiers: Leukocytosis type: other Qualified Code(s): D72.828 - Other elevated white blood cell count Code(s): D72.829 - Elevated white blood cell count, unspecified Status: Acute Assessment and Plan: Severe leukocytosis with myelocytes and metamyelocytes present. Findings concerning for acute myelogenous leukemia LDH and uric acid elevated. 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 Oncology was consulted and appreciate recommendations. Bone marrow biopsy completed today, results are pending. Xarelto on hold for biopsy, should be able to resume tomorrow but will confer with Interventional Radiology and Hem/Onc Continue to trend WBC. 90.7 today Patient afebrile (2) COPD exacerbation: Code(s): J44.1 - Chronic obstructive pulmonary disease with (acute) exacerbation Status: Acute Assessment and Plan: Case was discussed by admitting provider with Dr. Sparks from pulmonology, who recommends placing the patient on empiric antibiotic therapy in case he has an opportunistic pneumonia given the potential for acute leukemia. Pulmonology consulted and appreciate recommendations. Continue scheduled nebulizer treatments q.4 hours with albuterol and Atrovent. Continue Symbicort. Continue mucolytic and 3% saline nebulizers twice daily. Continue levofloxacin for 5 days. Transition to p.o. this evening Systemic steroids on hold due to leukocytosis. At this point, systemic steroids would no longer be indicated as wheezing has resolved and patient improved from respiratory standpoint (3) Obstructive sleep apnea: Code(s): G47.33 - Obstructive sleep apnea (adult) (pediatric) Status: Acute Assessment and Plan: Auto titrating CPAP/BiPAP at night and daytime naps. (4) Chronic anticoagulation: Code(s): Z79.01 - nursing home (current) use of anticoagulants Status: Acute Assessment and Plan: Xarelto held for bone marrow biopsy. Please see above. Patient has IVC filter in place. (5) Cerebellar mass: Code(s): G93.89 - Other specified disorders of brain Status: Acute Assessment and Plan: 1.8 cm cerebellar mass noted on CT scan. Brain MRI was delayed due to need to confirm IVC filter type. MRI completed today which showed no abnormal masses or abnormally enhancing lesions artifactual appearance of mass at right cerebellar hemisphere on prior CT is felt to be due to asymmetric encephalomalacia likely related to old infarct/history of TBI. Additionally shows multiple larger regions of encephalomalacia and a craniotomy defect, consistent with history of TBI Patient is at baseline cognitive status No need for further evaluation (6) Left renal atrophy: Code(s): N26.1 - Atrophy of kidney (terminal) Status: Acute Assessment and Plan: Renal ultrasound demonstrated mild left renal atrophy without hydronephrosis. Renal function is stable Will need outpatient follow-up Plan Subjective Date/time seen: 08/31/22 17:02 Interval history: Date of service: 08/31/2022 Zafar Wright is a 52-year-old male with a history of COPD, diastolic CHF, tobacco abuse, alcohol abuse, hypertension, DVT s/p IVC filter, TBI, VALERIE who is seen in follow-up for severe leukocytosis and COPD exacerbation. Patient is doing okay today. Tolerated bone marrow biopsy without any difficulty. Denies pain. He continues to endorse wheezing, though states this is slightly improved. Nonproductive cough today. No shortness of breath or chest pain. Continues to complain of severe fatigue and little to no energy worsened over the past week. Denies nausea, vomiting, fever, or chills. Denies dizziness or lightheadedness. No chest pain. Review of Systems R
[2022-08-31] MEDS: HYDROcodone/acetaminophen (*CRX) 5-325 MG TABLET 1 TAB PO (17:27)
[2022-08-31] MEDS: levoFLOXacin 750 MG TABLET PO (20:47)
[2022-08-31 21:59] LABS: Pneumococcal Antigen Urine Not Detected (Not Detected)
[2022-09-01] VITALS (9 sets, daily range): BP systolic 117–125; BP diastolic 72; PULSE 69–84; RESP 14–18; TEMP 36.3; O2SAT 96–97
[2022-09-01] MEDS: IPRATROPIUM BR 0.02% INH SOLN 0.5 MG/2.5 ML VIAL INHALATION ×3 (00:17→11:56)
[2022-09-01] MEDS: ALBUTEROL SULFATE NEB 2.5 MG/3 ML INH 5 MG INHALATION ×3 (00:17→11:56)
[2022-09-01] MEDS: FLUTICASONE/SALMETEROL 115-21 MCG INHALER 1 PUFF 2 PUFF INHALATION ×2 (00:19→07:45)
[2022-09-01] MEDS: HYDROcodone/acetaminophen (*CRX) 5-325 MG TABLET 1 TAB PO ×3 (00:22→15:54)
[2022-09-01 05:30] LABS: Hematocrit 38.5 % (42.0-52.0); Hemoglobin 12.5 g/dL (14.0-18.0); Mean Corpuscular HGB Conc 32.5 g/dl (32-36); Mean Corpuscular Hemoglobin 30.1 pg (26-34); Mean Corpuscular Volume 92.8 fl (80-100); Mean Platelet Volume 10.5 fl (7.4-10.4); Platelet Count Result 272 k/mm3 (150-375); Red Blood Count 4.15 M/mm3 (4.6-6.20); Red Cell Distribution Width 16.1 % (11.5-14.5)
[2022-09-01 05:33] LABS: White Blood Count 90.7 K/mm3 (4.5-10.0)
[2022-09-01 05:38] LABS: Anion Gap 6 mmol/L (8-16); Blood Urea Nitrogen 16 mg/dL (9-20); Calcium 9.7 mg/dL (8.4-10.2); Carbon Dioxide 31 mmol/L (22-30); Chloride 102 mmol/L (98-107); Estimated CRCL calculation 76 ml/min; Estimated Glomerular Filt Rate 58; Glucose 100 mg/dL (65-110); Potassium 4.7 mmol/L (3.4-5.0); Sodium 139 mmol/L (137-145)
[2022-09-01] MEDS: levETIRAcetam 250 MG TABLET PO (09:08)
[2022-09-01] MEDS: NICOTINE (*PBKC) 21 MG PATCH 1 PATCH TRANSDERM (09:08)
[2022-09-01 09:09] LABS: Atypical Lymphocytes Present; Band Neutrophils Percent 30 % (0-6); Lymphocytes Absolute Manual 9.97 K/mm3 (1.1-4.5); Metamyelocytes Percent 12 %; Monocytes Absolute Manual 1.81 K/mm3 (0.1-0.90); Monocytes Percent Manual 2 % (3-9); Myelocytes Percent 10 %; Neutrophils Absolute Manual 58.95 K/mm3 (1.3-6.7); Neutrophils Percent Manual 35 % (46-73); Platelet Estimate Adequate (Adequate); Smudge Cells PRESENT; Total Cells Counted 100
[2022-09-01] MEDS: METOPROLOL TARTRATE 50 MG TAB PO (09:09)
[2022-09-01] MEDS: ATORVASTATIN 40 MG TABLET BY MOUTH (09:09)
[2022-09-01] MEDS: MONTELUKAST SODIUM 10 MG TABLET PO (09:09)
[2022-09-01] MEDS: PANTOPRAZOLE 40 MG TABLET PO (09:09)
[2022-09-01 09:10] LABS: Schistocytes None Seen (NORMAL)
[2022-09-01] MEDS: guaiFENesin 12 HR 600 MG TABCR 1200 MG PO (09:10)
--- NOTE | 2022-09-01 13:54 | PM.DS ---
DS: Admitting Diagnosis Discharge Date 09/01/2022 Admitting Diagnosis Leukocytosis DS: Discharge Diagnosis Discharge Diagnosis (1) Leukocytosis, unspecified: Qualifiers: Leukocytosis type: other Qualified Code(s): D72.828 - Other elevated white blood cell count Code(s): D72.829 - Elevated white blood cell count, unspecified Status: Acute Assessment and Plan: Severe leukocytosis with myelocytes and metamyelocytes present. Findings concerning for acute myelogenous leukemia LDH and uric acid elevated. 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 Oncology was consulted and appreciate recommendations. Bone marrow biopsy completed on 08/31 with results pending at time of discharge. Xarelto was held for biopsy but resumed prior to discharge. White blood cell count remained consistently elevated around 90 Patient afebrile Will follow-up with hematology/oncology on 09/08/2022 for review of bone marrow biopsy results and continued monitoring (2) COPD exacerbation: Code(s): J44.1 - Chronic obstructive pulmonary disease with (acute) exacerbation Status: Acute Assessment and Plan: Patient was seen in consultation by pulmonology. Recommended placing the patient on empiric antibiotic therapy as he has at risk for opportunistic pneumonia given possible acute leukemia. Systemic steroids were deferred given marked leukocytosis Patient had symptomatic improvement with scheduled nebulizer treatments, Symbicort, mucolytics, 3% saline nebs Completed 5 days of Levaquin Respiratory status returned to baseline. Patient had no supplemental oxygen requirement (3) Obstructive sleep apnea: Code(s): G47.33 - Obstructive sleep apnea (adult) (pediatric) Status: Acute Assessment and Plan: Continue CPAP (4) Chronic anticoagulation: Code(s): Z79.01 - jail (current) use of anticoagulants Status: Acute Assessment and Plan: Pt maintained on Xarelto due to history of DVT. Additionally, patient has IVC filter in place. Xarelto held for bone marrow biopsy but resumed prior to discharge. (5) Cerebellar mass: Code(s): G93.89 - Other specified disorders of brain Status: Acute Assessment and Plan: 1.8 cm cerebellar mass noted on CT scan. Brain MRI was delayed due to need to confirm IVC filter type. MRI completed on 08/31 which showed no abnormal masses or abnormally enhancing lesions. Artifactual appearance of mass at right cerebellar hemisphere on prior CT felt to be due to asymmetric encephalomalacia likely related to old infarct/history of TBI. Additionally shows multiple larger regions of encephalomalacia and a craniotomy defect, consistent with history of TBI Patient is at baseline cognitive status No need for further evaluation (6) Left renal atrophy: Code(s): N26.1 - Atrophy of kidney (terminal) Status: Acute Assessment and Plan: Renal ultrasound demonstrated mild left renal atrophy without hydronephrosis. Renal function is stable Outpatient follow-up with PCP, consider nephrology referral. DS: Summary Hospital Course Hospital Course: Date of admission: 08/28/2022 Date of discharge: 09/01/2022 Zafar Wright is a 52-year-old male with a history of COPD, diastolic CHF, tobacco abuse, alcohol abuse, hypertension, DVT s/p IVC filter, TBI, VALERIE who presented to the emergency department on 08/28/2022?at the direction of his PCP for evaluation elevated white blood cell count with associated lethargy and also had complaints of wheezing. On presentation to ED, his vital signs are stable, he was afebrile, WBC 100.6, hemoglobin 13.4, hematocrit 40.4, platelets 288, BMP unremarkable, CXR showed minimal bibasilar airspace opacity consistent with atelectasis versus pneumonia. He was admitted to the hospitalist
[2022-09-01 16:38] LABS: Legionella pneumophila Ag Ur Not Detected (Not Detected)
[2022-09-01] MEDS: levoFLOXacin 750 MG TABLET PO (17:43)
[2022-09-04 13:23] LABS: BCR/abl Prior Result Not Given
[2022-09-04 14:07] LABS: BCR/abl P190 Not Detected; BCR/abl P210 Detected
[2022-09-04 14:08] LABS: BCR/abl P190 Chg YES; BCR/abl P210 Chg YES
== END 2022-09-01 17:45 | disposition home or self-care (01) | DRG 815 ==
LOC: ANHED 18:31 → ANH2MED 19:08
PROVIDERS: Emergency Medicine; Internal Medicine; Nurse Practitioner Family; Radiology Diagnostic Radiology; Absent Provider Internal Medicine Hematology & Oncology; Admitting Provider Internal Medicine; Emergency Provider Emergency Medicine; PCP Family Medicine; Visit Provider Physician Assistant
PROC: 07DR3ZX Extraction of Iliac Bone Marrow, Percutaneous Approach, Diagnostic (ICD-10-PCS; principal; 2022-08-31 08:00)
DX: D72.829 Elevated white blood cell count, unspecified (principal); I50.32 Chronic diastolic (congestive) heart failure; J44.1 Chronic obstructive pulmonary disease with (acute) exacerbation; I11.0 Hypertensive heart disease with heart failure; G47.33 Obstructive sleep apnea (adult) (pediatric); Z20.822 Contact with and (suspected) exposure to COVID-19; N26.1 Atrophy of kidney (terminal); G93.89 Other specified disorders of brain; E78.5 Hyperlipidemia, unspecified; F32.9 Major depressive disorder, single episode, unspecified; F41.1 Generalized anxiety disorder; E66.9 Obesity, unspecified; Z68.34 Body mass index [BMI] 34.0-34.9, adult; Z86.718 Personal history of other venous thrombosis and embolism; Z79.01 Long term (current) use of anticoagulants; Z87.820 Personal history of traumatic brain injury
CPT/HCPCS: 36415; 38222; 70450; 70553; 71045; 74177; 76705; 76775; 80048; 80053; 81003; 81206; 81207; 83615; 84550; 85025; 86738; 87070; 87081; 87205; 87449; 87899; 88184; 88185; 88305; 88311; 88313; 94640; 94667; 94668; 99285; A9270; A9577; C9803; J1642; J1956; J3010; J7040; Q9967; U0003; U0005

== ENCOUNTER 2022-09-22 09:07 | Outpatient (CLI) | payer OTHER, SELFPAY ==
[2022-09-22 09:24] LABS: Hematocrit 38.9 % (42.0-52.0); Hemoglobin 12.9 g/dL (14.0-18.0); Mean Corpuscular HGB Conc 33.2 g/dl (32-36); Mean Corpuscular Hemoglobin 30.4 pg (26-34); Mean Corpuscular Volume 91.5 fl (80-100); Mean Platelet Volume 10.5 fl (7.4-10.4); Platelet Count Result 252 k/mm3 (150-375); Red Blood Count 4.25 M/mm3 (4.6-6.20); Red Cell Distribution Width 16.6 % (11.5-14.5)
[2022-09-22 09:26] LABS: White Blood Count 77.2 K/mm3 (4.5-10.0)
[2022-09-22 09:28] LABS: Blood Urea Nitrogen 16 mg/dL (8-26); Carbon Dioxide 25 mmol/L (22-30); Chloride 104 mmol/L (98-109); Estimated Glomerular Filt Rate > 60; Glucose 111 mg/dL (70-105); Ionized Calcium (POC) 1.25 mmol/L (1.11-1.31); Potassium 3.8 mmol/L (3.5-4.9); Sodium 142 mmol/L (138-146)
[2022-09-22 09:31] LABS: Atypical Lymphocytes Present; Band Neutrophils Percent 14 % (0-6); Lymphocytes Absolute Manual 12.35 K/mm3 (1.1-4.5); Metamyelocytes Percent 4 %; Monocytes Absolute Manual 4.63 K/mm3 (0.1-0.90); Monocytes Percent Manual 6 % (3-9); Myelocytes Percent 4 %; Neutrophils Absolute Manual 54.04 K/mm3 (1.3-6.7); Neutrophils Percent Manual 56 % (46-73); Platelet Estimate Adequate (Adequate); Schistocytes None Seen (NORMAL); Total Cells Counted 100
== END 2022-09-22 09:08 | disposition home or self-care (01) ==
LOC: ANHLAB 09:10
PROVIDERS: PCP Family Medicine; Visit Provider Internal Medicine Hematology & Oncology
DX: C92.10 Chronic myeloid leukemia, BCR/ABL-positive, not having achieved remission (principal)
CPT/HCPCS: 36415; 80047; 85025

== ENCOUNTER 2022-10-26 09:08 | Outpatient (CLI) | payer OTHER, SELFPAY ==
[2022-10-26 09:23] LABS: Basophils Absolute Auto 0.1 K/mm3 (0.0-0.1); Basophils Percent Auto 2.4 % (0.2-1.2); Eosinophils Absolute Auto 0.7 K/mm3 (0-0.3); Eosinophils Percent Auto 15.1 % (0-4.4); Hematocrit 39.1 % (42.0-52.0); Hemoglobin 12.7 g/dL (14.0-18.0); Immature Granulocyte Absolute 0.03 K/mm3 (0.00-0.031); Immature Granulocyte Percent A 0.6 % (0-0.5); Lymphocytes Absolute Auto 1.27 K/mm3 (0.9-3.2); Lymphocytes Percent Auto 25.9 % (18.3-44.2); Mean Corpuscular HGB Conc 32.5 g/dl (32-36); Mean Corpuscular Hemoglobin 30.2 pg (26-34); Mean Corpuscular Volume 92.9 fl (80-100); Mean Platelet Volume 9.3 fl (7.4-10.4); Monocytes Absolute Auto 0.4 K/mm3 (0.1-0.6); Monocytes Percent Auto 7.3 % (2.6-8.5); Neutrophils Absolute Auto 2.4 K/mm3 (1.3-6.7); Neutrophils Percent Auto 48.7 % (45.5-73.1); Platelet Count Result 239 k/mm3 (150-375); Red Blood Count 4.21 M/mm3 (4.6-6.20); Red Cell Distribution Width 15.3 % (11.5-14.5); White Blood Count 4.9 K/mm3 (4.5-10.0)
[2022-10-26 09:33] LABS: Blood Urea Nitrogen 16 mg/dL (8-26); Carbon Dioxide 28 mmol/L (22-30); Chloride 104 mmol/L (98-109); Estimated Glomerular Filt Rate 58; Glucose 108 mg/dL (70-105); Ionized Calcium (POC) 1.11 mmol/L (1.11-1.31); Sodium 141 mmol/L (138-146)
[2022-10-26 11:41] LABS: Alanine Aminotransferase 18 U/L (6-50); Alkaline Phosphatase 75 U/L (38-126); Anion Gap 6 mmol/L (8-16); Aspartate Amino Transferase 23 U/L (17-59); Bilirubin,Total 0.5 mg/dL (0.2-1.3); Blood Urea Nitrogen 17 mg/dL (9-20); Calcium 8.5 mg/dL (8.4-10.2); Carbon Dioxide 27 mmol/L (22-30); Chloride 107 mmol/L (98-107); Estimated Glomerular Filt Rate > 60; Glucose 109 mg/dL (65-110); Potassium 4.1 mmol/L (3.4-5.0); Sodium 140 mmol/L (137-145)
== END 2022-10-26 09:09 | disposition home or self-care (01) ==
PROVIDERS: PCP Family Medicine; Visit Provider Internal Medicine Hematology & Oncology
DX: C92.10 Chronic myeloid leukemia, BCR/ABL-positive, not having achieved remission (principal)
CPT/HCPCS: 36415; 80047; 80053; 85025

== ENCOUNTER 2022-12-14 14:04 | Outpatient (CLI) | payer OTHER, SELFPAY ==
[2022-12-14 14:20] LABS: Basophils Percent Auto 0.5 % (0.2-1.2); Eosinophils Absolute Auto 0.3 K/mm3 (0-0.3); Eosinophils Percent Auto 3.5 % (0-4.4); Hemoglobin 13.6 g/dL (14.0-18.0); Immature Granulocyte Absolute 0.02 K/mm3 (0.00-0.031); Immature Granulocyte Percent A 0.2 % (0-0.5); Lymphocytes Absolute Auto 1.46 K/mm3 (0.9-3.2); Lymphocytes Percent Auto 16.9 % (18.3-44.2); Mean Corpuscular HGB Conc 33.2 g/dl (32-36); Mean Corpuscular Hemoglobin 30.3 pg (26-34); Mean Corpuscular Volume 91.3 fl (80-100); Mean Platelet Volume 9.5 fl (7.4-10.4); Monocytes Absolute Auto 0.9 K/mm3 (0.1-0.6); Monocytes Percent Auto 10.9 % (2.6-8.5); Neutrophils Absolute Auto 5.9 K/mm3 (1.3-6.7); Platelet Count Result 229 k/mm3 (150-375); Red Blood Count 4.49 M/mm3 (4.6-6.20); Red Cell Distribution Width 13.1 % (11.5-14.5); White Blood Count 8.7 K/mm3 (4.5-10.0)
[2022-12-14 16:20] LABS: Alanine Aminotransferase 19 U/L (6-50); Albumin Level 4.2 g/dL (3.5-5.1); Alkaline Phosphatase 78 U/L (38-126); Anion Gap 4 mmol/L (8-16); Aspartate Amino Transferase 22 U/L (17-59); Bilirubin,Total 0.5 mg/dL (0.2-1.3); Blood Urea Nitrogen 16 mg/dL (9-20); Calcium 9.1 mg/dL (8.4-10.2); Carbon Dioxide 29 mmol/L (22-30); Chloride 102 mmol/L (98-107); Estimated Glomerular Filt Rate 58; Glucose 93 mg/dL (65-110); Potassium 4.4 mmol/L (3.4-5.0); Sodium 135 mmol/L (137-145)
[2022-12-20 11:23] LABS: BCR/abl Prior Result See Report; BCR/abl1/abl1% (IS) 5.056 %
[2022-12-20 12:08] LABS: BCR/abl P210 Detected
[2022-12-20 12:09] LABS: BCR/abl P210 Chg YES
== END 2022-12-14 14:05 | disposition home or self-care (01) ==
PROVIDERS: PCP Family Medicine; Visit Provider Internal Medicine Hematology & Oncology
DX: C92.10 Chronic myeloid leukemia, BCR/ABL-positive, not having achieved remission (principal)
CPT/HCPCS: 36415; 80053; 81207; 85025

== ENCOUNTER 2022-12-23 00:31 | Emergency (ER) | payer OTHER, SELFPAY ==
--- NOTE | ~2022-12-23 | XR_ITS ---
XR ankle LT 2V DATE: 12/23/2022 01:46 INDICATION: Ankle pain TECHNIQUE: 3 views COMPARISON: None FINDINGS: No recent fracture. Old healed distal fibular shaft fracture. Ankle mortise is intact. No d islocation. No periosteal reaction or bone destruction. IMPRESSION: No acute abnormality Reviewed, dictated and finalized at location A. E SALES ASSOCIATE IMPRESSION: No acute abnormality
--- NOTE | ~2022-12-23 | XR_ITS ---
EXAM: XR hip LT 2V w AP pelvis DATE: 12/23/2022 01:46 HISTORY: hip pain . COMPARISON: None available. FINDINGS: Partially visualized IVC filter. Normal mineralization. No fracture or dislocation. No lyti c or blastic lesion. Joint spaces are maintained. No erosion or periosteal change. Soft tissues withi n normal limits. IMPRESSION: No acute osseous finding in the pelvis or left hip. Reviewed, dictated and finalized at location K. TRIC CUTTER OPERATOR
--- NOTE | ~2022-12-23 | XR_ITS ---
EXAM: XR foot LT min 3V DATE: 12/23/2022 01:46 HISTORY: foot pain . COMPARISON: None available. FINDINGS: Normal mineralization. No fracture or dislocation. No lytic or blastic lesion. Joint space s are maintained. No erosion or periosteal change. Soft tissues within normal limits. IMPRESSION: No acute osseous finding in the left foot. Reviewed, dictated and finalized at location K. IDE PLANT CABLE ENGINEER
[2022-12-23 00:37] VITALS: BP 134/71; PULSE 60; RESP 16; TEMP 36.4; O2SAT 95
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
[2022-12-23] MEDS: HYDROcodone/acetaminophen (*CRX) 10-325 MG TABLET 1 TAB PO (01:35)
[2022-12-23 02:45] VITALS: BP 107/72; PULSE 60; RESP 19; O2SAT 95
== END 2022-12-23 02:59 | disposition home or self-care (01) ==
LOC: ANHED 02:29
PROVIDERS: Emergency Provider Physician Assistant; PCP Family Medicine
DX: M79.672 Pain in left foot (principal); M25.552 Pain in left hip; M25.572 Pain in left ankle and joints of left foot; C92.00 Acute myeloblastic leukemia, not having achieved remission; J44.9 Chronic obstructive pulmonary disease, unspecified; I11.0 Hypertensive heart disease with heart failure; I50.30 Unspecified diastolic (congestive) heart failure; J84.9 Interstitial pulmonary disease, unspecified; E78.5 Hyperlipidemia, unspecified; G47.33 Obstructive sleep apnea (adult) (pediatric); K21.9 Gastro-esophageal reflux disease without esophagitis; E66.9 Obesity, unspecified; Z68.35 Body mass index [BMI] 35.0-35.9, adult; Z86.718 Personal history of other venous thrombosis and embolism; Z87.820 Personal history of traumatic brain injury; Z87.891 Personal history of nicotine dependence; Z79.899 Other long term (current) drug therapy; Z79.01 Long term (current) use of anticoagulants
CPT/HCPCS: 73502; 73600; 73630; 99284; A9270

== ENCOUNTER 2023-02-16 00:17 | Day surgery (SDC) | payer OTHER, SELFPAY ==
[2023-02-06 13:49] VITALS: BMI 37.0
[2023-02-16 09:52] VITALS: BP 137/77; PULSE 67; RESP 20; TEMP 36.4; O2SAT 97; BMI 37.2
[2023-02-16] MEDS: LACTATED RINGERS 1,000 ML 150 ML IV CONT (10:04)
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
[2023-02-16 11:15] VITALS: BP 120/70; PULSE 68; RESP 17; O2SAT 98
[2023-02-16 11:25] VITALS: BP 125/81; PULSE 56; RESP 20; O2SAT 95
[2023-02-16 11:35] VITALS: BP 126/84; PULSE 60; RESP 22; O2SAT 100
== END 2023-02-16 11:57 | disposition home or self-care (01) ==
PROVIDERS: PCP Family Medicine; Visit Provider Internal Medicine Gastroenterology
PROC: 0DJD8ZZ Inspection of Lower Intestinal Tract, Via Natural or Artificial Opening Endoscopic (ICD-10-PCS; CPT 45378; principal; 2023-02-16 10:45)
DX: Z12.11 Encounter for screening for malignant neoplasm of colon (principal); K64.8 Other hemorrhoids; K57.30 Diverticulosis of large intestine without perforation or abscess without bleeding; C92.00 Acute myeloblastic leukemia, not having achieved remission; J44.9 Chronic obstructive pulmonary disease, unspecified; I11.0 Hypertensive heart disease with heart failure; I50.30 Unspecified diastolic (congestive) heart failure; E78.5 Hyperlipidemia, unspecified; F41.1 Generalized anxiety disorder; K21.9 Gastro-esophageal reflux disease without esophagitis; J84.9 Interstitial pulmonary disease, unspecified; I82.532 Chronic embolism and thrombosis of left popliteal vein; F32.9 Major depressive disorder, single episode, unspecified; G47.33 Obstructive sleep apnea (adult) (pediatric); F10.10 Alcohol abuse, uncomplicated; E66.9 Obesity, unspecified; Z68.37 Body mass index [BMI] 37.0-37.9, adult; Z72.0 Tobacco use; F12.90 Cannabis use, unspecified, uncomplicated; Z79.01 Long term (current) use of anticoagulants; Z79.51 Long term (current) use of inhaled steroids; Z87.820 Personal history of traumatic brain injury
CPT/HCPCS: 45378; J2704; J7120

== ENCOUNTER 2023-03-20 14:40 | Outpatient (CLI) | payer OTHER, SELFPAY ==
--- NOTE | ~2023-03-20 | XR_ITS ---
EXAMINATION: XR chest 2V Exam Date/Time: 03/20/2023 14:55 CDT HISTORY: J18.9 - Pneumonia, unspecified organism Comparison: 08/28/2022 and 07/15/2022; high-resolution chest CT 08/22/2022. RESULT: Lines, tubes, and devices: None. Lungs and pleura: Persistent versus recurrent streaky and centrilobular nodular opacities in the kimo ateral lung bases. Chronic right posterior and lateral costophrenic angle blunting Cardiomediastinal silhouette: Stable. Other: No acute osseous or upper abdominal finding. IMPRESSION: Persistent/recurrent basilar opacities may represent pneumonitis, bronchitis, or infectious airways d isease. Reviewed, dictated and finalized at location K. IMPRESSION: Persistent/recurrent basilar opacities may represent pneumonitis, bronchitis, o r infectious airways disease.
[2023-03-20 15:07] LABS: Basophils Percent Auto 0.2 % (0.2-1.2); Eosinophils Percent Auto 0.5 % (0-4.4); Hematocrit 35.8 % (42.0-52.0); Hemoglobin 11.8 g/dL (14.0-18.0); Immature Granulocyte Absolute 0.02 K/mm3 (0.00-0.031); Immature Granulocyte Percent A 0.2 % (0-0.5); Lymphocytes Absolute Auto 1.17 K/mm3 (0.9-3.2); Lymphocytes Percent Auto 13.3 % (18.3-44.2); Mean Corpuscular Hemoglobin 30.3 pg (26-34); Mean Platelet Volume 9.6 fl (7.4-10.4); Monocytes Absolute Auto 0.7 K/mm3 (0.1-0.6); Monocytes Percent Auto 7.8 % (2.6-8.5); Neutrophils Absolute Auto 6.9 K/mm3 (1.3-6.7); Platelet Count Result 164 k/mm3 (150-375); Red Blood Count 3.89 M/mm3 (4.6-6.20); Red Cell Distribution Width 16.7 % (11.5-14.5); White Blood Count 8.8 K/mm3 (4.5-10.0)
[2023-03-20 15:17] LABS: Alanine Aminotransferase 25 U/L (6-50); Albumin Level 3.8 g/dL (3.5-5.1); Alkaline Phosphatase 57 U/L (38-126); Anion Gap 5 mmol/L (8-16); Aspartate Amino Transferase 26 U/L (17-59); Bilirubin,Total 0.8 mg/dL (0.2-1.3); Blood Urea Nitrogen 13 mg/dL (9-20); Calcium 8.5 mg/dL (8.4-10.2); Carbon Dioxide 31 mmol/L (22-30); Chloride 104 mmol/L (98-107); Estimated Glomerular Filt Rate > 60; Glucose 96 mg/dL (65-110); Potassium 3.8 mmol/L (3.4-5.0); Sodium 140 mmol/L (137-145)
[2023-03-20 17:26] LABS: Influenza A QL RT-PCR Negative (Negative); Influenza B QL RT-PCR Negative (Negative); RSV RNA, RT-PCR Negative (Negative); SARS-CoV-2 RNA PCR Positive (Negative)
== END 2023-03-20 14:41 | disposition home or self-care (01) ==
PROVIDERS: PCP Family Medicine; Visit Provider Nurse Practitioner Gerontology
DX: J18.9 Pneumonia, unspecified organism (principal)
CPT/HCPCS: 36415; 71046; 80053; 85025; 87637

== ENCOUNTER 2023-04-21 17:22 | Emergency (ER) | payer OTHER, SELFPAY ==
[2023-04-21] VITALS (15 sets, daily range): BP systolic 111–129; BP diastolic 81–84; PULSE 48–65; RESP 12–20; TEMP 36.5; O2SAT 94–100
--- NOTE | ~2023-04-21 | CT_ITS ---
EXAMINATION: CT cervical spine wo con DATE: 04/21/2023 21:20 INDICATION: Head injury TECHNIQUE: Computed tomography (CT) of the cervical spine was performed without intravenous contrast. The dose-length product (DLP) was 506.24 mGy-cm. Automated exposure control and iterative reconstruc tion technique were employed. COMPARISON: None FINDINGS: Bone alignment is normal. There is no fracture. There is moderate loss of intervertebral di sc space height at C5-6. The odontoid process is intact. There is multilevel mild facet joint osteoar thritis. There is mild uncovertebral joint osteoarthritis at C5-6. There is an old healed fracture of the medial right clavicle. IMPRESSION: 1. Mild cervical spondylosis without acute findings. Reviewed, dictated and finalized at location F.
--- NOTE | ~2023-04-21 | CT_ITS ---
EXAMINATION: CT brain wo con INDICATION: Head injury COMPARISON: 08/28/2022 TECHNIQUE: Standard unenhanced head CT. The dose-length product (DLP) was 681.00 mGy-cm. The mA was a djusted according to patient size. Iterative reconstruction technique was employed. FINDINGS: There is no intracranial hemorrhage, acute infarction, or abnormal mass lesion. There are a reas of prior infarction in the left frontal and temporal lobes and left cerebellum. A left frontotem poral craniotomy defect is again noted. Linear encephalomalacia in the right frontal lobe, outlining with a small whitney hole, likely reflects site of prior ventricular shunt tract. The ventricles are nor mal. There is no abnormal mass effect or midline shift. The wynne-white matter differentiation is norm al. The basal cisterns are patent. The orbits are normal. The paranasal sinuses, mastoids and calvari um are normal. IMPRESSION: 1. Areas of prior infarction without acute intracranial abnormality. Reviewed, dictated and finalized at location F.
--- NOTE | ~2023-04-21 | XR_ITS ---
EXAMINATION: XR chest 1V portable INDICATION: Shortness of breath TECHNIQUE: Portable AP chest at 2110 hours COMPARISON: 03/20/2023 FINDINGS: There are minimal airspace opacities of the lung bases. No pleural effusion or pneumothorax . The cardiomediastinal silhouette is normal. IMPRESSION: 1. Minimal bibasilar airspace opacities, consistent with atelectasis versus pneumonia. Reviewed, dictated and finalized at location F. IMPRESSION: 1. Minimal bibasilar airspace opacities, consistent with atelectasis versus pne umonia.
[2023-04-21] MEDS: ALBUTEROL SULFATE NEB 2.5 MG/3 ML INH INHALATION (21:22)
[2023-04-21] MEDS: IPRATROPIUM BR 0.02% INH SOLN 0.5 MG/2.5 ML VIAL INHALATION (21:23)
[2023-04-21 21:39] LABS: Basophils Percent Auto 0.1 % (0.2-1.2); Eosinophils Absolute Auto 0.3 K/mm3 (0-0.3); Hematocrit 38.1 % (42.0-52.0); Hemoglobin 12.4 g/dL (14.0-18.0); Immature Granulocyte Absolute 0.01 K/mm3 (0.00-0.031); Immature Granulocyte Percent A 0.1 % (0-0.5); Lymphocytes Absolute Auto 1.86 K/mm3 (0.9-3.2); Lymphocytes Percent Auto 27.8 % (18.3-44.2); Mean Corpuscular HGB Conc 32.5 g/dl (32-36); Mean Corpuscular Hemoglobin 31.1 pg (26-34); Mean Corpuscular Volume 95.5 fl (80-100); Mean Platelet Volume 9.9 fl (7.4-10.4); Monocytes Absolute Auto 0.5 K/mm3 (0.1-0.6); Monocytes Percent Auto 7.9 % (2.6-8.5); Neutrophils Percent Auto 60.1 % (45.5-73.1); Platelet Count Result 183 k/mm3 (150-375); Red Blood Count 3.99 M/mm3 (4.6-6.20); Red Cell Distribution Width 14.3 % (11.5-14.5); White Blood Count 6.7 K/mm3 (4.5-10.0)
[2023-04-21 21:51] LABS: Alanine Aminotransferase 21 U/L (6-50); Albumin Level 3.8 g/dL (3.5-5.1); Alkaline Phosphatase 61 U/L (38-126); Anion Gap 6 mmol/L (8-16); Aspartate Amino Transferase 25 U/L (17-59); Bilirubin,Total 0.5 mg/dL (0.2-1.3); Blood Urea Nitrogen 18 mg/dL (9-20); Calcium 8.7 mg/dL (8.4-10.2); Carbon Dioxide 27 mmol/L (22-30); Chloride 106 mmol/L (98-107); Estimated Glomerular Filt Rate > 60; Glucose 103 mg/dL (65-110); INR 1.5; Magnesium 1.8 mg/dL (1.6-2.3); Potassium 3.9 mmol/L (3.4-5.0); Prothrombin Time 19.4 Seconds (11.1-14.7); Sodium 139 mmol/L (137-145)
[2023-04-21 21:52] LABS: Partial Thromboplastin Time 36.4 SECONDS (22.3-36.8)
[2023-04-21 22:02] LABS: NT Pro B Type Natriuretic Pept 151 pg/mL (19.9-100); Troponin I < 0.012 ng/mL (0.000-0.034)
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
[2023-04-21 22:18] LABS: Influenza A QL RT-PCR Negative (Negative); Influenza B QL RT-PCR Negative (Negative); SARS-CoV-2 RNA PCR Negative (Negative)
[2023-04-22 00:01] VITALS: BP 124/75; PULSE 56; RESP 21; O2SAT 98
[2023-04-22 00:15] VITALS: BP 131/85; PULSE 54; RESP 20; O2SAT 99
[2023-04-22 01:04] LABS: Troponin I < 0.012 ng/mL (0.000-0.034)
[2023-04-22] MEDS: levoFLOXacin 750 MG TABLET PO (01:32)
[2023-04-22] MEDS: predniSONE 20 MG TABLET 60 MG PO (01:33)
[2023-04-22 01:35] VITALS: BP 129/76; PULSE 57; RESP 19; O2SAT 97
== END 2023-04-22 01:35 | disposition home or self-care (01) ==
PROVIDERS: Emergency Provider Emergency Medicine; PCP Family Medicine
DX: J44.0 Chronic obstructive pulmonary disease with (acute) lower respiratory infection (principal); J18.9 Pneumonia, unspecified organism; S09.90XA Unspecified injury of head, initial encounter; W19.XXXA Unspecified fall, initial encounter; I11.0 Hypertensive heart disease with heart failure; I50.30 Unspecified diastolic (congestive) heart failure; I82.532 Chronic embolism and thrombosis of left popliteal vein; F41.1 Generalized anxiety disorder; K21.9 Gastro-esophageal reflux disease without esophagitis; E78.5 Hyperlipidemia, unspecified; F32.9 Major depressive disorder, single episode, unspecified; G47.33 Obstructive sleep apnea (adult) (pediatric); Z87.820 Personal history of traumatic brain injury; Z79.51 Long term (current) use of inhaled steroids; Z72.0 Tobacco use; F12.90 Cannabis use, unspecified, uncomplicated; Z79.01 Long term (current) use of anticoagulants; Z20.822 Contact with and (suspected) exposure to COVID-19
CPT/HCPCS: 36415; 70450; 71045; 72125; 80053; 83605; 83735; 83880; 84484; 85025; 85610; 85730; 87636; 99284; A9270; J7512

== ENCOUNTER 2023-05-11 10:38 | Outpatient (CLI) | payer OTHER, SELFPAY ==
--- NOTE | ~2023-05-11 | CT_ITS ---
CT Scan of the Chest without Contrast: Clinical Indication: Shortness of breath Technique: Contiguous sections were acquired throughout the chest without intravenous contrast. Dose reduction technique was used on this scan by utilizing automated exposure control and iterative recon struction technique. The dose-length product (DLP) was 525.66 mGy-cm. COMPARISON: 08/22/2022 Findings: There is no evidence of any significant mediastinal, hilar or axillary lymphadenopathy. Extensive cor onary artery calcifications are present. There is no evidence of pleural or pericardial effusion. There is stable scarring and/or atelectatic change at the right middle lobe and right lower lobe. No pulmonary nodule or other consolidation evident. Images through the upper abdomen reveal no abnormalities. Impression: Chronic right basilar atelectasis or scarring, as detailed above. No other significant findings. Reviewed, dictated and finalized at [facility]. Impression: Chronic right basilar atelectasis or scarring, as detailed above. No other significant findings.
== END 2023-05-11 10:39 | disposition home or self-care (01) ==
PROVIDERS: PCP Family Medicine; Visit Provider Nurse Practitioner Gerontology
DX: R06.02 Shortness of breath (principal)
CPT/HCPCS: 71250

== ENCOUNTER 2023-06-11 08:11 | Outpatient (CLI) | payer OTHER, SELFPAY ==
--- NOTE | 2023-06-11 12:41 | WPDSIXMINUTE ---
Six Minute Walk Procedure Procedure Performed Pulmonary Stress Test (6 min walk) Six Minute Walk Six Minute Walk: This is a 6 minute walk test. The test was performed and interpreted in accordance with the 2014 ERS/ATS task force guidelines. Findings: The patient's resting room air oxygen saturation measured by pulse oximetry was 92% and heart rate was 59 bpm. Patient ambulated for 305 meters and oxygen saturation remained 90 to 95%. Heart rate at the end of the study was 79 bpm. The patient did not qualify for supplemental oxygen at rest or with ambulation. There are no prior studies for comparison.
--- NOTE | 2023-06-11 12:43 | WPDPFTINT ---
PFT Procedure Performed PFT Procedure Performed Spirometry with Pre/Post Bronchodilator Plethysmography (Lung Vol) Diffusing Cap (DLCO) Flow Vol Loop PFT Interpretation This is a pulmonary function test with pre and post-bronchodilator spirometry, plethysmography and diffusing capacity. The test was performed and results interpreted in accordance with the 2019 and 2005 ATS/ERS Task Force guidelines respectively using the Global Lung Function Initiative-2012 reference equations. Patient demonstrated good effort and cooperation. Reproducibility criteria were met. The quality of the pre bronchodilator spirometry maneuver was Grade B and post bronchodilator spirometry maneuver was Grade B. Findings: Spirometry: There is decreased maximal expiratory airflow. The contour the inspiratory flow tracing is normal. The pre bronchodilator FVC is 4.41 L, 88% predicted. The pre bronchodilator FEV1 is 3.01 L, 76% predicted. The pre bronchodilator FEV1: FVC ratio is 68%. The post bronchodilator FVC is 4.35 L, representing 1% decrease. The post bronchodilator FEV1 is 2.99 L, representing a 1% decrease. The post bronchodilator FEV1: FVC ratio 69%. Plethysmography: The total lung capacity is 8.12 L, 114% predicted. The functional residual capacity is 3.98 L, 108% predicted. The residual volume is 3.66 L, 171% predicted. Diffusing capacity: The diffusing capacity unadjusted for hemoglobin and carboxyhemoglobin is 25.4, 83% predicted. The diffusing capacity adjusted for alveolar volume is 4.06, 92% predicted. Impression: There is a mild obstructive abnormality wiht a normal FEV1 and without significant improvement after inhaling a single dose of albuterol. The increase in residual volume is consistent with air trapping from an obstructive abnormality. The diffusing capacity is normal. There are no prior studies for comparison
== END 2023-06-11 08:12 | disposition home or self-care (01) ==
LOC: ANHPFT 08:12
PROVIDERS: PCP Family Medicine; Visit Provider Physician Assistant
DX: J44.9 Chronic obstructive pulmonary disease, unspecified (principal); R94.2 Abnormal results of pulmonary function studies
CPT/HCPCS: 94060; 94618; 94726; 94729

== ENCOUNTER 2023-07-04 15:26 | Outpatient (CLI) | payer OTHER, SELFPAY ==
--- NOTE | ~2023-07-04 | XR_ITS ---
XR chest 2V 07/04/2023 15:56 Indication: Cough and shortness of breath. COPD. Procedure: PA and lateral views of the chest Comparison: Comparison to multiple prior studies sequentially, with oldest reviewed study dated 01/2022. Findings: Interval development of left lower lobe pneumonia. Heart size normal. No significant effusi on. The lungs are hyperinflated which is consistent with, but not diagnostic of chronic obstructive p ulmonary disease. No acute osseous abnormality. Impression: 1: Left lower lobe pneumonia. Reviewed, dictated and finalized at location B. Impression: 1: Left lower lobe pneumonia.
== END 2023-07-04 15:27 | disposition home or self-care (01) ==
PROVIDERS: PCP Family Medicine; Visit Provider Physician Assistant
DX: R05.9 Cough, unspecified (principal); J44.9 Chronic obstructive pulmonary disease, unspecified; I10 Essential (primary) hypertension; R91.8 Other nonspecific abnormal finding of lung field
CPT/HCPCS: 71046

== ENCOUNTER 2023-10-08 11:25 | Outpatient (CLI) | payer OTHER, SELFPAY ==
[2023-10-08 12:11] LABS: Basophils Percent Auto 0.5 % (0.2-1.2); Eosinophils Absolute Auto 0.8 K/mm3 (0-0.3); Eosinophils Percent Auto 11.4 % (0-4.4); Hematocrit 39.3 % (42.0-52.0); Hemoglobin 12.3 g/dL (14.0-18.0); Immature Granulocyte Absolute 0.03 K/mm3 (0.00-0.031); Immature Granulocyte Percent A 0.5 % (0-0.5); Lymphocytes Absolute Auto 1.85 K/mm3 (0.9-3.2); Lymphocytes Percent Auto 27.9 % (18.3-44.2); Mean Corpuscular HGB Conc 31.3 g/dl (32-36); Mean Corpuscular Hemoglobin 30.1 pg (26-34); Mean Corpuscular Volume 96.3 fl (80-100); Mean Platelet Volume 10.8 fl (7.4-10.4); Monocytes Absolute Auto 0.8 K/mm3 (0.1-0.6); Monocytes Percent Auto 11.7 % (2.6-8.5); Neutrophils Absolute Auto 3.2 K/mm3 (1.3-6.7); Platelet Count Result 197 k/mm3 (150-375); Red Blood Count 4.08 M/mm3 (4.6-6.20); Red Cell Distribution Width 13.9 % (11.5-14.5); White Blood Count 6.6 K/mm3 (4.5-10.0)
[2023-10-08 12:21] LABS: Alanine Aminotransferase 21 U/L (6-50); Albumin Level 3.9 g/dL (3.5-5.1); Alkaline Phosphatase 53 U/L (38-126); Anion Gap 7 mmol/L (8-16); Aspartate Amino Transferase 28 U/L (17-59); Bilirubin,Total 0.4 mg/dL (0.2-1.3); Blood Urea Nitrogen 17 mg/dL (9-20); Carbon Dioxide 29 mmol/L (22-30); Chloride 102 mmol/L (98-107); Estimated Glomerular Filt Rate > 60; Glucose 94 mg/dL (65-110); Potassium 4.1 mmol/L (3.4-5.0); Sodium 138 mmol/L (137-145)
== END 2023-10-08 11:26 | disposition home or self-care (01) ==
LOC: ANHLAB 11:27
PROVIDERS: PCP Family Medicine; Visit Provider Physician Assistant
DX: R53.81 Other malaise (principal)
CPT/HCPCS: 36415; 80053; 85025